=== PATIENT | male | born 1935 | race Caucasian/White ===

== ENCOUNTER 2017-07-25 16:56 | Inpatient (IN) | payer MEDICARE, BC ==
[~2017-07-25] VITALS: Ht 177.8 cm; Wt 109.9 kg
[~2017-07-25 16:56] MED LIST: APIX5TAB3 PO; GABA-532 PO; HYDR25TA4 PO; LIRA0.6P SQ; LOSA100T28 PO; MAGN400T6 PO; MEMA5TAB40 PO; SIMV20TA5 PO; SOTA80TA69 PO
[2017-07-25 17:14] LABS: BASOPHILS # (AUTO) 0.1 X10'3 (0-0.2); BASOPHILS % (AUTO) 0.5 % (0-1); EOSINOPHILS # (AUTO) 0.2 X10'3 (0-0.9); EOSINOPHILS % (AUTO) 1.7 % (0-6); HEMATOCRIT 37.2 % (42.0-52.0); HEMOGLOBIN 12.7 g/dl (14.0-17.9); LYMPHOCYTES % (AUTO) 13.9 % (21-51); MEAN CORPUSCULAR HEMOGLOBIN 32.7 PG (27.0-31.0); MEAN CORPUSCULAR HGB CONC 34.2 % (33.0-36.5); MEAN CORPUSCULAR VOLUME 95.8 FL (78-98); MONOCYTES # (AUTO) 0.3 X10'3 (0-0.9); MONOCYTES % (AUTO) 2.2 % (2-12); NEUTROPHILS # (AUTO) 11.8 X10'3 (1.8-7.7); NEUTROPHILS % (AUTO) 81.7 % (42-75); PLATELET COUNT 212 X10'3 (140-440); RED BLOOD COUNT 3.89 X10'6 (4.70-6.10); RED CELL DISTRIBUTION WIDTH 14.6 % (11.5-14.5); WHITE BLOOD COUNT 14.4 X10'3 (4.5-11.0)
[2017-07-25] MEDS ORDERED: ceFAZolin 1GM/D5W- ADD-VANTAGE 50 ML IV ONE ×2 (17:20)
[2017-07-25 17:25] LABS: INR 1.1 INR; PARTIAL THROMBOPLASTIN TIME 21 SECONDS (22-32); PROTHROMBIN TIME 10.9 SECONDS (9.0-12.0)
[2017-07-25] MEDS ORDERED: ceFAZolin inj. 2,000 MG in normal saline 100ml IV soln 100 ML IV ONE ×2 (17:25→18:00)
[2017-07-25 17:29] LABS: ALANINE AMINOTRANSFERASE 28 U/L (12-78); ALBUMIN 3.4 G/DL (3.4-5.0); ALKALINE PHOSPHATASE 61 IU/L (46-116); ANION GAP 12 (8-16); ASPARTATE AMINO TRANSFERASE 22 U/L (10-37); BILIRUBIN,TOTAL 0.9 MG/DL (0.1-1.0); BLOOD UREA NITROGEN 26 MG/DL (7-18); BUN/CREATININE RATIO 15.5 (5.4-32.0); CALCIUM 8.8 MG/DL (8.5-10.1); CHLORIDE 106 MMOL/L (99-107); CREATININE 1.68 MG/DL (0.60-1.10); GLUCOSE 205 MG/DL (70-104); POTASSIUM 4.8 MMOL/L (3.5-5.1); SODIUM 142 MMOL/L (135-145); TOTAL CARBON DIOXIDE 23.6 MMOL/L (24-32); TOTAL PROTEIN 6.7 G/DL (6.4-8.2); eGFR 39 ML/MIN
[2017-07-25] MEDS ORDERED: etomidate 2mg/ml inj. ONE (17:45)
[2017-07-25] MEDS ORDERED: sevoflurane 250ml liquid IH ONE (17:45)
[2017-07-25] MEDS ORDERED: neostigmine methylsulfate 1 MG/ML 10ml vial ONE (17:45)
[2017-07-25] MEDS: normal saline 1000ml 1,000 ML IV SCH (17:52)
[2017-07-25] MEDS ORDERED: ceFAZolin 2gm in dextrose, iso 100 ML IV ONE (17:55)
[2017-07-25] MEDS ORDERED: iohexol 350MG/ML 100ml bottle IV ONE (17:56)
[2017-07-25] MEDS ORDERED: heparin 10,000 units/1 ML INJ ONE (18:21)
[2017-07-25] MEDS ORDERED: ringers solution, lacted 1,000 ML IV ONE (18:44)
[2017-07-25] MEDS ORDERED: meperidine/PF 50mg/ml syringe IV PRN ×2 (18:45)
[2017-07-25] MEDS ORDERED: meperidine/PF 50mg/ml syringe IV ONE (18:45)
[2017-07-25] MEDS ORDERED: hydrALAZINE 20mg/ml inj. IV PRN (18:45)
[2017-07-25] MEDS ORDERED: labetalol 20mg/4ml (5mg/ml) syringe IV PRN (18:45)
[2017-07-25] MEDS ORDERED: ondansetron/PF 4mg/2ml inj IV PRN ×2 (18:45→21:25)
[2017-07-25] MEDS ORDERED: morphine 4 MG/ML inj SYRINge IV PRN ×4 (18:45→23:15)
[2017-07-25 20:06] LABS: ABG BASE EXCESS -1.5 mmol/L (-2.0-3.0); ABG HCO3 24.5 mmol/L (22.0-26.0); ABG OXYGEN SATURATION 98.1 % (95-98); ABG PCO2 (T) 45.4 mmHg (35.0-48.0); ABG PH (T) 7.346 (7.350-7.450); ABG PO2 (T) 145.4 mmHg (83-108); FCOHb 0.3 % (0.5-1.5); FMetHb 0.3 % (0.3-1.12); FO2Hb 97.5 % (94-100); PATIENT TEMPERATURE 36.2; TOTAL HEMOGLOBIN 10.6 G/dl (14.0-18.0)
[2017-07-25 21:15] VITALS: BP_SYST 100; BP_SYST 105; BP_DIAS 54; BP_DIAS 55
[2017-07-25] MEDS ORDERED: HYDROmorphone 2mg/ml vial IV PRN (21:25)
[2017-07-25] MEDS: Potassium Cl inj 20 MEQ in ringers solution, lacted 1,000 ML IV SCH (21:25)
[2017-07-25 21:30] VITALS: BP_SYST 101; BP_DIAS 57; BP_DIAS 67
[2017-07-25 21:45] VITALS: BP 117/60
[2017-07-25 22:00] VITALS: BP 100/44
[2017-07-25 22:30] VITALS: BP 112/51
[2017-07-25] MEDS ORDERED: naloxone 0.4 mg/ml inj ONE (22:55)
[2017-07-25 23:00] VITALS: BP 103/48
[2017-07-25 23:50] LABS: BASOPHILS % (AUTO) 0.3 % (0-1); EOSINOPHILS % (AUTO) 0.1 % (0-6); HEMOGLOBIN 9.9 g/dl (14.0-17.9); LYMPHOCYTES # (AUTO) 1.6 X10'3 (1.1-4.8); MEAN CORPUSCULAR HEMOGLOBIN 32.2 PG (27.0-31.0); MEAN CORPUSCULAR VOLUME 94.7 FL (78-98); MEAN PLATELET VOLUME 9.9 FL (7.4-10.4); MONOCYTES % (AUTO) 6.4 % (2-12); NEUTROPHILS # (AUTO) 12.2 X10'3 (1.8-7.7); NEUTROPHILS % (AUTO) 82.2 % (42-75); PLATELET COUNT 175 X10'3 (140-440); RED BLOOD COUNT 3.06 X10'6 (4.70-6.10); RED CELL DISTRIBUTION WIDTH 14.5 % (11.5-14.5); WHITE BLOOD COUNT 14.9 X10'3 (4.5-11.0)
[2017-07-26] VITALS (27 sets, daily range): BP systolic 74–153; BP diastolic 40–66
[2017-07-26 00:04] LABS: ALANINE AMINOTRANSFERASE 23 U/L (12-78); ALBUMIN 2.9 G/DL (3.4-5.0); ALBUMIN/GLOBULIN RATIO 1.2 (1.1-1.5); ALKALINE PHOSPHATASE 43 IU/L (46-116); ANION GAP 9 (8-16); ASPARTATE AMINO TRANSFERASE 23 U/L (10-37); BILIRUBIN,TOTAL 1.1 MG/DL (0.1-1.0); BLOOD UREA NITROGEN 24 MG/DL (7-18); BUN/CREATININE RATIO 17.3 (5.4-32.0); CALCIUM 7.9 MG/DL (8.5-10.1); CHLORIDE 110 MMOL/L (99-107); CREATININE 1.39 MG/DL (0.60-1.10); GLUCOSE 145 MG/DL (70-104); POTASSIUM 4.8 MMOL/L (3.5-5.1); SODIUM 144 MMOL/L (135-145); TOTAL CARBON DIOXIDE 25.1 MMOL/L (24-32); TOTAL PROTEIN 5.3 G/DL (6.4-8.2); eGFR 49 ML/MIN
[2017-07-26] MEDS: ceFAZolin inj. 1,000 MG in dextrose 5%-water 50ml 50 ML IV SCH ×3 (00:15→15:19)
[2017-07-26] MEDS ORDERED: albumin (Human) 5% 250ml 500 ML IV ONE (00:16)
[2017-07-26] MEDS: normal saline 1000ml 1,000 ML IV SCH ×2 (00:55→07:27)
[2017-07-26] MEDS: Potassium Cl inj 20 MEQ in ringers solution, lacted 1,000 ML IV SCH (05:30)
[2017-07-26 06:54] LABS: BASOPHILS # (AUTO) 0.1 X10'3 (0-0.2); BASOPHILS % (AUTO) 0.5 % (0-1); EOSINOPHILS # (AUTO) 0.1 X10'3 (0-0.9); EOSINOPHILS % (AUTO) 0.7 % (0-6); HEMATOCRIT 24.6 % (42.0-52.0); HEMOGLOBIN 8.4 g/dl (14.0-17.9); LYMPHOCYTES # (AUTO) 1.6 X10'3 (1.1-4.8); LYMPHOCYTES % (AUTO) 14.9 % (21-51); MEAN CORPUSCULAR HEMOGLOBIN 32.6 PG (27.0-31.0); MEAN CORPUSCULAR VOLUME 95.8 FL (78-98); MEAN PLATELET VOLUME 10.1 FL (7.4-10.4); MONOCYTES # (AUTO) 0.8 X10'3 (0-0.9); MONOCYTES % (AUTO) 6.9 % (2-12); NEUTROPHILS # (AUTO) 8.4 X10'3 (1.8-7.7); PLATELET COUNT 159 X10'3 (140-440); RED BLOOD COUNT 2.57 X10'6 (4.70-6.10); RED CELL DISTRIBUTION WIDTH 15.1 % (11.5-14.5); WHITE BLOOD COUNT 10.9 X10'3 (4.5-11.0)
[2017-07-26 07:05] LABS: ALBUMIN 3.2 G/DL (3.4-5.0); ANION GAP 11 (8-16); BLOOD UREA NITROGEN 22 MG/DL (7-18); BUN/CREATININE RATIO 16.2 (5.4-32.0); CALCIUM 7.8 MG/DL (8.5-10.1); CHLORIDE 111 MMOL/L (99-107); CREATININE 1.36 MG/DL (0.60-1.10); GLUCOSE 141 MG/DL (70-104); POTASSIUM 4.4 MMOL/L (3.5-5.1); SODIUM 146 MMOL/L (135-145); TOTAL CARBON DIOXIDE 23.8 MMOL/L (24-32); eGFR 50 ML/MIN
[2017-07-26] MEDS ORDERED: acetaminophen 325mg tablet PO PRN (08:35)
[2017-07-26] MEDS: ringers solution, lacted 1,000 ML IV SCH ×2 (08:47→21:55)
[2017-07-26] MEDS ORDERED: salt irrigation nasal spray 45 ML SPRAY NS PRN (09:55)
[2017-07-26] MEDS ORDERED: MAGN400C PO (10:46)
[2017-07-26] MEDS ORDERED: HYDR25TA4 PO (10:46)
[2017-07-26] MEDS ORDERED: SOTA80TA PO (10:47)
[2017-07-26] MEDS ORDERED: METF500T4 PO (10:53)
[2017-07-26] MEDS: HYDROcodone/acetaminophen 10/325mg tab PO PRN ×2 (11:21→16:19)
[2017-07-26 14:56] LABS: HEMOGLOBIN 7.4 g/dl (14.0-17.9); MEAN CORPUSCULAR HEMOGLOBIN 32.5 PG (27.0-31.0); MEAN CORPUSCULAR HGB CONC 34.5 % (33.0-36.5); MEAN CORPUSCULAR VOLUME 94.2 FL (78-98); PLATELET COUNT 144 X10'3 (140-440); RED BLOOD COUNT 2.26 X10'6 (4.70-6.10); RED CELL DISTRIBUTION WIDTH 15.2 % (11.5-14.5); WHITE BLOOD COUNT 10.5 X10'3 (4.5-11.0)
[2017-07-26 15:01] LABS: HEMATOCRIT 21.3 % (42.0-52.0)
[2017-07-26 20:49] LABS: HEMATOCRIT 23.7 % (42.0-52.0); HEMOGLOBIN 8.2 g/dl (14.0-17.9); MEAN CORPUSCULAR HEMOGLOBIN 32.1 PG (27.0-31.0); MEAN CORPUSCULAR HGB CONC 34.6 % (33.0-36.5); MEAN CORPUSCULAR VOLUME 92.7 FL (78-98); MEAN PLATELET VOLUME 9.7 FL (7.4-10.4); PLATELET COUNT 125 X10'3 (140-440); RED BLOOD COUNT 2.56 X10'6 (4.70-6.10); RED CELL DISTRIBUTION WIDTH 15.6 % (11.5-14.5)
[2017-07-26] MEDS ORDERED: vancomycin/NS 1 GM ADD-VANTAGE 250 ML X 1 DOSE IV ONE ×2 (21:00→22:30)
[2017-07-26] MEDS: CefTRIAXone 2gm/D5W 50ml 50 ML IV SCH (21:16)
[2017-07-27] VITALS (22 sets, daily range): BP systolic 97–163; BP diastolic 46–87
[2017-07-27] MEDS ORDERED: ceFAZolin inj. 1,000 MG in dextrose 5%-water 50ml 50 ML IV SCH ×2
[2017-07-27 05:31] LABS: BASOPHILS % (AUTO) 0.4 % (0-1); EOSINOPHILS # (AUTO) 0.1 X10'3 (0-0.9); EOSINOPHILS % (AUTO) 1.4 % (0-6); HEMOGLOBIN 8.2 g/dl (14.0-17.9); LYMPHOCYTES # (AUTO) 1.6 X10'3 (1.1-4.8); LYMPHOCYTES % (AUTO) 15.2 % (21-51); MEAN CORPUSCULAR HEMOGLOBIN 31.9 PG (27.0-31.0); MEAN CORPUSCULAR HGB CONC 34.3 % (33.0-36.5); MEAN CORPUSCULAR VOLUME 93.2 FL (78-98); MONOCYTES # (AUTO) 0.8 X10'3 (0-0.9); MONOCYTES % (AUTO) 8.1 % (2-12); NEUTROPHILS # (AUTO) 7.8 X10'3 (1.8-7.7); NEUTROPHILS % (AUTO) 74.9 % (42-75); PLATELET COUNT 123 X10'3 (140-440); RED BLOOD COUNT 2.58 X10'6 (4.70-6.10); RED CELL DISTRIBUTION WIDTH 15.4 % (11.5-14.5); WHITE BLOOD COUNT 10.4 X10'3 (4.5-11.0)
[2017-07-27 05:34] LABS: ALBUMIN 2.7 G/DL (3.4-5.0); ANION GAP 9 (8-16); BLOOD UREA NITROGEN 16 MG/DL (7-18); BUN/CREATININE RATIO 11.7 (5.4-32.0); CALCIUM 7.4 MG/DL (8.5-10.1); CHLORIDE 104 MMOL/L (99-107); CREATININE 1.37 MG/DL (0.60-1.10); GLUCOSE 150 MG/DL (70-104); POTASSIUM 3.5 MMOL/L (3.5-5.1); SODIUM 138 MMOL/L (135-145); TOTAL CARBON DIOXIDE 25.5 MMOL/L (24-32); eGFR 50 ML/MIN
[2017-07-27] MEDS ORDERED: diltiazem 5mg/ml 5ml inj. IV ONE (06:20)
[2017-07-27] MEDS ORDERED: verapamil 2.5 mg/ml inj IV ONE (06:30)
[2017-07-27] MEDS: metroNIDAZOLE-Flagyl 500mg/NS 100 ML IV SCH ×2 (07:25→19:39)
[2017-07-27] MEDS: aspirin 81mg tablet.DR PO SCH (07:25)
[2017-07-27] MEDS: CefTRIAXone 2gm/D5W 50ml 50 ML IV SCH (07:25)
[2017-07-27] MEDS ORDERED: sotalol 80mg tablet PO ONE (07:30)
[2017-07-27] MEDS ORDERED: DEXTROSE IV SCH ×2 (08:00→08:10)
[2017-07-27] MEDS ORDERED: AMIODARONE IV SCH ×2 (08:00→08:10)
[2017-07-27] MEDS ORDERED: amiodarone 150mg/dext, iso-os 100 ML IV ONE (08:00)
[2017-07-27] MEDS ORDERED: potassium chloride 10mEq CAPSULE.SA PO SCH (08:00)
[2017-07-27] MEDS: amiodarone/D5 450MG/250ML BAG 250 ML IV SCH ×2 (08:47→15:27)
[2017-07-27] MEDS ORDERED: potassium Cl 10 mEq/100mL bag IV ONE (09:05)
[2017-07-27] MEDS ORDERED: potassium 10mEq/100ml NS w/LIDOcaine (10mg/bag) IV ONE (09:25)
[2017-07-27] MEDS ORDERED: potassium chloride 10mEq ER tablet PO ONE (09:30)
[2017-07-27] MEDS ORDERED: magnesium 4gm in 100ml NS 100 ML IV ONE (10:50)
[2017-07-27] MEDS: HYDROcodone/acetaminophen 10/325mg tab PO PRN (11:35)
[2017-07-27] MEDS: lactobacillus rhamnosus 10,000 MMU CELLS/CAPSULE PO SCH (19:39)
[2017-07-28] VITALS (23 sets, daily range): BP systolic 109–164; BP diastolic 50–85
[2017-07-28] MEDS: amiodarone/D5 450MG/250ML BAG 250 ML IV SCH (03:08)
[2017-07-28 05:51] LABS: BASOPHILS % (AUTO) 0.3 % (0-1); EOSINOPHILS # (AUTO) 0.3 X10'3 (0-0.9); EOSINOPHILS % (AUTO) 2.8 % (0-6); HEMATOCRIT 22.5 % (42.0-52.0); HEMOGLOBIN 7.8 g/dl (14.0-17.9); LYMPHOCYTES # (AUTO) 1.3 X10'3 (1.1-4.8); LYMPHOCYTES % (AUTO) 12.8 % (21-51); MEAN CORPUSCULAR HEMOGLOBIN 32.3 PG (27.0-31.0); MEAN CORPUSCULAR HGB CONC 34.8 % (33.0-36.5); MEAN CORPUSCULAR VOLUME 92.7 FL (78-98); MEAN PLATELET VOLUME 9.9 FL (7.4-10.4); MONOCYTES # (AUTO) 0.7 X10'3 (0-0.9); MONOCYTES % (AUTO) 6.9 % (2-12); NEUTROPHILS # (AUTO) 7.8 X10'3 (1.8-7.7); NEUTROPHILS % (AUTO) 77.2 % (42-75); PLATELET COUNT 126 X10'3 (140-440); RED BLOOD COUNT 2.43 X10'6 (4.70-6.10); RED CELL DISTRIBUTION WIDTH 15.6 % (11.5-14.5); WHITE BLOOD COUNT 10.1 X10'3 (4.5-11.0)
[2017-07-28 06:19] LABS: ALBUMIN 2.5 G/DL (3.4-5.0); ANION GAP 8 (8-16); BLOOD UREA NITROGEN 14 MG/DL (7-18); BUN/CREATININE RATIO 11.5 (5.4-32.0); CALCIUM 7.8 MG/DL (8.5-10.1); CHLORIDE 104 MMOL/L (99-107); CREATININE 1.22 MG/DL (0.60-1.10); GLUCOSE 144 MG/DL (70-104); POTASSIUM 3.5 MMOL/L (3.5-5.1); SODIUM 138 MMOL/L (135-145); TOTAL CARBON DIOXIDE 25.6 MMOL/L (24-32); eGFR 57 ML/MIN
[2017-07-28] MEDS ORDERED: magnesium hydroxide 30ml (MOM) UD suspension PO PRN (08:40)
[2017-07-28] MEDS: metroNIDAZOLE-Flagyl 500mg/NS 100 ML IV SCH ×2 (08:55→19:52)
[2017-07-28] MEDS: potassium chloride 10mEq ER tablet PO SCH (08:56)
[2017-07-28] MEDS: aspirin 81mg tablet.DR PO SCH (08:56)
[2017-07-28] MEDS: lactobacillus rhamnosus 10,000 MMU CELLS/CAPSULE PO SCH ×2 (08:56→19:51)
[2017-07-28] MEDS: HYDROcodone/acetaminophen 10/325mg tab PO PRN (08:59)
[2017-07-28] MEDS: CefTRIAXone 2gm/D5W 50ml 50 ML IV SCH (09:04)
[2017-07-28] MEDS ORDERED: VANCOMYCIN LEVEL IV NR (10:30)
[2017-07-28] MEDS ORDERED: sotalol 80mg tablet PO SCH (11:00)
[2017-07-28] MEDS ORDERED: sotalol 80mg tablet PO ONE (11:20)
[2017-07-29] VITALS (22 sets, daily range): BP systolic 90–167; BP diastolic 48–78
[2017-07-29 06:15] LABS: BASOPHILS % (AUTO) 0.4 % (0-1); EOSINOPHILS # (AUTO) 0.3 X10'3 (0-0.9); EOSINOPHILS % (AUTO) 4.4 % (0-6); HEMOGLOBIN 8.3 g/dl (14.0-17.9); LYMPHOCYTES # (AUTO) 1.3 X10'3 (1.1-4.8); LYMPHOCYTES % (AUTO) 15.8 % (21-51); MEAN CORPUSCULAR HEMOGLOBIN 32.3 PG (27.0-31.0); MEAN CORPUSCULAR HGB CONC 34.4 % (33.0-36.5); MEAN CORPUSCULAR VOLUME 93.8 FL (78-98); MEAN PLATELET VOLUME 10.4 FL (7.4-10.4); MONOCYTES # (AUTO) 0.7 X10'3 (0-0.9); NEUTROPHILS # (AUTO) 5.6 X10'3 (1.8-7.7); NEUTROPHILS % (AUTO) 70.4 % (42-75); PLATELET COUNT 152 X10'3 (140-440); RED BLOOD COUNT 2.56 X10'6 (4.70-6.10); RED CELL DISTRIBUTION WIDTH 15.2 % (11.5-14.5)
[2017-07-29 06:45] LABS: ALBUMIN 2.3 G/DL (3.4-5.0); ANION GAP 9 (8-16); BLOOD UREA NITROGEN 15 MG/DL (7-18); BUN/CREATININE RATIO 13.3 (5.4-32.0); CALCIUM 7.7 MG/DL (8.5-10.1); CHLORIDE 106 MMOL/L (99-107); CREATININE 1.13 MG/DL (0.60-1.10); GLUCOSE 129 MG/DL (70-104); POTASSIUM 3.6 MMOL/L (3.5-5.1); SODIUM 140 MMOL/L (135-145); TOTAL CARBON DIOXIDE 25.3 MMOL/L (24-32); eGFR 62 ML/MIN
[2017-07-29] MEDS: sotalol 80mg tablet PO SCH ×2 (07:18→20:17)
[2017-07-29] MEDS: lactobacillus rhamnosus 10,000 MMU CELLS/CAPSULE PO SCH ×2 (07:18→20:15)
[2017-07-29] MEDS: potassium chloride 10mEq ER tablet PO SCH (07:18)
[2017-07-29] MEDS: aspirin 81mg tablet.DR PO SCH (07:18)
[2017-07-29] MEDS: metroNIDAZOLE-Flagyl 500mg/NS 100 ML IV SCH (07:19)
[2017-07-29] MEDS: CefTRIAXone 2gm/D5W 50ml 50 ML IV SCH (07:19)
[2017-07-29] MEDS: HYDROcodone/acetaminophen 10/325mg tab PO PRN (14:04)
[2017-07-29] MEDS: metroNIDAZOLE 500mg tablet PO SCH (20:15)
[2017-07-29] MEDS: apixaban 5mg tablet PO SCH (20:17)
[2017-07-30] VITALS (14 sets, daily range): BP systolic 108–173; BP diastolic 33–83
[2017-07-30 00:37] LABS: BASOPHILS # (AUTO) 0.1 X10'3 (0-0.2); BASOPHILS % (AUTO) 0.6 % (0-1); EOSINOPHILS # (AUTO) 0.4 X10'3 (0-0.9); EOSINOPHILS % (AUTO) 4.7 % (0-6); LYMPHOCYTES # (AUTO) 1.4 X10'3 (1.1-4.8); LYMPHOCYTES % (AUTO) 16.2 % (21-51); MEAN CORPUSCULAR HEMOGLOBIN 31.1 PG (27.0-31.0); MEAN CORPUSCULAR HGB CONC 33.2 % (33.0-36.5); MEAN CORPUSCULAR VOLUME 93.6 FL (78-98); MEAN PLATELET VOLUME 10.1 FL (7.4-10.4); MONOCYTES # (AUTO) 0.8 X10'3 (0-0.9); MONOCYTES % (AUTO) 9.5 % (2-12); NEUTROPHILS # (AUTO) 5.9 X10'3 (1.8-7.7); PLATELET COUNT 188 X10'3 (140-440); RED BLOOD COUNT 2.57 X10'6 (4.70-6.10); RED CELL DISTRIBUTION WIDTH 14.5 % (11.5-14.5); WHITE BLOOD COUNT 8.6 X10'3 (4.5-11.0)
[2017-07-30 00:39] LABS: ALBUMIN 2.3 G/DL (3.4-5.0); ANION GAP 8 (8-16); BLOOD UREA NITROGEN 18 MG/DL (7-18); BUN/CREATININE RATIO 16.4 (5.4-32.0); CALCIUM 7.8 MG/DL (8.5-10.1); CHLORIDE 104 MMOL/L (99-107); GLUCOSE 165 MG/DL (70-104); POTASSIUM 3.9 MMOL/L (3.5-5.1); SODIUM 139 MMOL/L (135-145); eGFR 64 ML/MIN
[2017-07-30] MEDS: lactobacillus rhamnosus 10,000 MMU CELLS/CAPSULE PO SCH ×2 (07:33→20:37)
[2017-07-30] MEDS: apixaban 5mg tablet PO SCH ×2 (07:33→20:37)
[2017-07-30] MEDS: sotalol 80mg tablet PO SCH ×2 (07:33→20:37)
[2017-07-30] MEDS: metroNIDAZOLE 500mg tablet PO SCH ×2 (07:33→20:00)
[2017-07-30] MEDS: CefTRIAXone 2gm/D5W 50ml 50 ML IV SCH (07:33)
[2017-07-30] MEDS: aspirin 81mg tablet.DR PO SCH (07:34)
[2017-07-30] MEDS: potassium chloride 10mEq ER tablet PO SCH (07:35)
[2017-07-30] MEDS ORDERED: magnesium citrate 296ml oral solution PO PRN (08:00)
[2017-07-31 03:00] VITALS: BP 162/57
[2017-07-31 06:00] VITALS: BP 117/61
[2017-07-31] MEDS: potassium chloride 10mEq ER tablet PO SCH (07:39)
[2017-07-31] MEDS: lactobacillus rhamnosus 10,000 MMU CELLS/CAPSULE PO SCH ×2 (07:39→19:48)
[2017-07-31] MEDS: aspirin 81mg tablet.DR PO SCH (07:39)
[2017-07-31] MEDS: apixaban 5mg tablet PO SCH ×2 (07:39→19:48)
[2017-07-31] MEDS: CefTRIAXone 2gm/D5W 50ml 50 ML IV SCH (07:40)
[2017-07-31] MEDS: sotalol 80mg tablet PO SCH ×2 (07:40→19:48)
[2017-07-31] MEDS: metroNIDAZOLE 500mg tablet PO SCH ×2 (08:00→19:48)
[2017-07-31 11:00] VITALS: BP 155/54
[2017-07-31 15:00] VITALS: BP 150/52
[2017-07-31 19:00] VITALS: BP 115/61
[2017-07-31 23:00] VITALS: BP 155/64
[2017-08-01 03:00] VITALS: BP 136/64
[2017-08-01 05:32] LABS: BASOPHILS % (AUTO) 0.3 % (0-1); EOSINOPHILS # (AUTO) 0.5 X10'3 (0-0.9); EOSINOPHILS % (AUTO) 5.7 % (0-6); HEMATOCRIT 25.2 % (42.0-52.0); HEMOGLOBIN 8.5 g/dl (14.0-17.9); LYMPHOCYTES # (AUTO) 1.6 X10'3 (1.1-4.8); MEAN CORPUSCULAR HEMOGLOBIN 31.3 PG (27.0-31.0); MEAN CORPUSCULAR HGB CONC 33.7 % (33.0-36.5); MEAN PLATELET VOLUME 9.7 FL (7.4-10.4); MONOCYTES # (AUTO) 0.7 X10'3 (0-0.9); MONOCYTES % (AUTO) 8.2 % (2-12); NEUTROPHILS # (AUTO) 5.9 X10'3 (1.8-7.7); NEUTROPHILS % (AUTO) 67.8 % (42-75); PLATELET COUNT 255 X10'3 (140-440); RED BLOOD COUNT 2.71 X10'6 (4.70-6.10); RED CELL DISTRIBUTION WIDTH 15.8 % (11.5-14.5); WHITE BLOOD COUNT 8.6 X10'3 (4.5-11.0)
[2017-08-01 05:52] LABS: ALBUMIN 2.3 G/DL (3.4-5.0); ANION GAP 8 (8-16); BLOOD UREA NITROGEN 21 MG/DL (7-18); BUN/CREATININE RATIO 17.1 (5.4-32.0); CALCIUM 8.2 MG/DL (8.5-10.1); CHLORIDE 107 MMOL/L (99-107); CREATININE 1.23 MG/DL (0.60-1.10); GLUCOSE 134 MG/DL (70-104); POTASSIUM 4.7 MMOL/L (3.5-5.1); SODIUM 143 MMOL/L (135-145); TOTAL CARBON DIOXIDE 27.7 MMOL/L (24-32); eGFR 56 ML/MIN
[2017-08-01 06:00] VITALS: BP 99/63
[2017-08-01] MEDS: sotalol 80mg tablet PO SCH ×2 (08:00→22:07)
[2017-08-01] MEDS: lactobacillus rhamnosus 10,000 MMU CELLS/CAPSULE PO SCH ×2 (08:30→22:07)
[2017-08-01] MEDS: CefTRIAXone 2gm/D5W 50ml 50 ML IV SCH (08:30)
[2017-08-01] MEDS: metroNIDAZOLE 500mg tablet PO SCH ×2 (08:30→22:07)
[2017-08-01] MEDS: apixaban 5mg tablet PO SCH ×2 (08:31→22:07)
[2017-08-01] MEDS: potassium chloride 10mEq ER tablet PO SCH (08:31)
[2017-08-01] MEDS: aspirin 81mg tablet.DR PO SCH (08:31)
[2017-08-01 11:00] VITALS: BP 126/53
[2017-08-01] MEDS: normal saline 1000ml 1,000 ML IV SCH ×2 (11:50→21:50)
[2017-08-01 15:00] VITALS: BP 141/56
[2017-08-01 19:00] VITALS: BP 112/60
[2017-08-01 23:00] VITALS: BP 114/57
[2017-08-02 03:00] VITALS: BP 132/64
[2017-08-02 05:15] LABS: BASOPHILS # (AUTO) 0.1 X10'3 (0-0.2); BASOPHILS % (AUTO) 0.9 % (0-1); EOSINOPHILS # (AUTO) 0.4 X10'3 (0-0.9); EOSINOPHILS % (AUTO) 5.3 % (0-6); HEMATOCRIT 25.9 % (42.0-52.0); HEMOGLOBIN 8.6 g/dl (14.0-17.9); LYMPHOCYTES # (AUTO) 1.6 X10'3 (1.1-4.8); LYMPHOCYTES % (AUTO) 19.2 % (21-51); MEAN CORPUSCULAR HEMOGLOBIN 31.3 PG (27.0-31.0); MEAN CORPUSCULAR HGB CONC 33.1 % (33.0-36.5); MEAN CORPUSCULAR VOLUME 94.6 FL (78-98); MEAN PLATELET VOLUME 9.9 FL (7.4-10.4); MONOCYTES # (AUTO) 0.7 X10'3 (0-0.9); MONOCYTES % (AUTO) 8.5 % (2-12); NEUTROPHILS # (AUTO) 5.6 X10'3 (1.8-7.7); NEUTROPHILS % (AUTO) 66.1 % (42-75); PLATELET COUNT 299 X10'3 (140-440); RED BLOOD COUNT 2.73 X10'6 (4.70-6.10); RED CELL DISTRIBUTION WIDTH 15.6 % (11.5-14.5); WHITE BLOOD COUNT 8.5 X10'3 (4.5-11.0)
[2017-08-02 05:36] LABS: ALBUMIN 2.3 G/DL (3.4-5.0); ANION GAP 8 (8-16); BLOOD UREA NITROGEN 18 MG/DL (7-18); CALCIUM 8.2 MG/DL (8.5-10.1); CHLORIDE 109 MMOL/L (99-107); GLUCOSE 135 MG/DL (70-104); POTASSIUM 4.9 MMOL/L (3.5-5.1); SODIUM 144 MMOL/L (135-145); eGFR 58 ML/MIN
[2017-08-02 06:00] VITALS: BP 126/72
[2017-08-02] MEDS: normal saline 1000ml 1,000 ML IV SCH ×2 (06:16→17:50)
[2017-08-02] MEDS: aspirin 81mg tablet.DR PO SCH (07:35)
[2017-08-02] MEDS: metroNIDAZOLE 500mg tablet PO SCH ×2 (07:35→20:14)
[2017-08-02] MEDS: lactobacillus rhamnosus 10,000 MMU CELLS/CAPSULE PO SCH ×2 (07:35→20:12)
[2017-08-02] MEDS: sotalol 80mg tablet PO SCH ×2 (07:35→20:13)
[2017-08-02] MEDS: apixaban 5mg tablet PO SCH ×2 (07:35→20:14)
[2017-08-02] MEDS: potassium chloride 10mEq ER tablet PO SCH (07:35)
[2017-08-02] MEDS: CefTRIAXone 2gm/D5W 50ml 50 ML IV SCH (07:36)
[2017-08-02] MEDS: gabapentin 100mg capsule PO SCH ×2 (13:01→20:14)
[2017-08-02 19:00] VITALS: BP 134/65
[2017-08-02 22:00] VITALS: BP 137/59
[2017-08-03 02:00] VITALS: BP 135/91
[2017-08-03 06:00] VITALS: BP 140/46
[2017-08-03 06:01] LABS: BASOPHILS % (AUTO) 0.6 % (0-1); EOSINOPHILS # (AUTO) 0.5 X10'3 (0-0.9); EOSINOPHILS % (AUTO) 5.9 % (0-6); HEMATOCRIT 25.4 % (42.0-52.0); HEMOGLOBIN 8.5 g/dl (14.0-17.9); LYMPHOCYTES # (AUTO) 1.5 X10'3 (1.1-4.8); LYMPHOCYTES % (AUTO) 19.3 % (21-51); MEAN CORPUSCULAR HEMOGLOBIN 31.6 PG (27.0-31.0); MEAN CORPUSCULAR HGB CONC 33.6 % (33.0-36.5); MEAN CORPUSCULAR VOLUME 94.2 FL (78-98); MEAN PLATELET VOLUME 9.6 FL (7.4-10.4); MONOCYTES # (AUTO) 0.6 X10'3 (0-0.9); MONOCYTES % (AUTO) 8.3 % (2-12); NEUTROPHILS % (AUTO) 65.9 % (42-75); PLATELET COUNT 297 X10'3 (140-440); RED CELL DISTRIBUTION WIDTH 15.4 % (11.5-14.5); WHITE BLOOD COUNT 7.6 X10'3 (4.5-11.0)
[2017-08-03 06:30] LABS: ALBUMIN 2.3 G/DL (3.4-5.0); ANION GAP 9 (8-16); BLOOD UREA NITROGEN 17 MG/DL (7-18); BUN/CREATININE RATIO 14.8 (5.4-32.0); CHLORIDE 107 MMOL/L (99-107); CREATININE 1.15 MG/DL (0.60-1.10); GLUCOSE 126 MG/DL (70-104); POTASSIUM 4.2 MMOL/L (3.5-5.1); SODIUM 141 MMOL/L (135-145); TOTAL CARBON DIOXIDE 25.5 MMOL/L (24-32); eGFR 61 ML/MIN
[2017-08-03] MEDS: apixaban 5mg tablet PO SCH ×2 (08:09→20:08)
[2017-08-03] MEDS: gabapentin 100mg capsule PO SCH ×3 (08:09→20:09)
[2017-08-03] MEDS: metroNIDAZOLE 500mg tablet PO SCH (08:09)
[2017-08-03] MEDS: aspirin 81mg tablet.DR PO SCH (08:09)
[2017-08-03] MEDS: CefTRIAXone 2gm/D5W 50ml 50 ML IV SCH (08:09)
[2017-08-03] MEDS: lactobacillus rhamnosus 10,000 MMU CELLS/CAPSULE PO SCH ×2 (08:09→20:09)
[2017-08-03] MEDS: sotalol 80mg tablet PO SCH ×2 (08:10→20:08)
[2017-08-03] MEDS: potassium chloride 10mEq ER tablet PO SCH (08:10)
[2017-08-03 11:00] VITALS: BP 133/54
[2017-08-03 15:00] VITALS: BP 116/46
[2017-08-03 19:00] VITALS: BP 129/59
[2017-08-03 23:00] VITALS: BP 145/50
[2017-08-04 04:53] VITALS: BP 142/56
[2017-08-04 05:26] LABS: BASOPHILS % (AUTO) 0.5 % (0-1); EOSINOPHILS # (AUTO) 0.4 X10'3 (0-0.9); EOSINOPHILS % (AUTO) 5.4 % (0-6); HEMOGLOBIN 8.7 g/dl (14.0-17.9); LYMPHOCYTES # (AUTO) 1.6 X10'3 (1.1-4.8); LYMPHOCYTES % (AUTO) 20.4 % (21-51); MEAN CORPUSCULAR HEMOGLOBIN 31.6 PG (27.0-31.0); MEAN CORPUSCULAR HGB CONC 33.5 % (33.0-36.5); MEAN CORPUSCULAR VOLUME 94.4 FL (78-98); MEAN PLATELET VOLUME 9.3 FL (7.4-10.4); MONOCYTES # (AUTO) 0.7 X10'3 (0-0.9); MONOCYTES % (AUTO) 9.1 % (2-12); NEUTROPHILS # (AUTO) 5.1 X10'3 (1.8-7.7); NEUTROPHILS % (AUTO) 64.6 % (42-75); PLATELET COUNT 298 X10'3 (140-440); RED BLOOD COUNT 2.75 X10'6 (4.70-6.10); RED CELL DISTRIBUTION WIDTH 15.5 % (11.5-14.5); WHITE BLOOD COUNT 7.9 X10'3 (4.5-11.0)
[2017-08-04 05:32] LABS: ALBUMIN 2.3 G/DL (3.4-5.0); ANION GAP 8 (8-16); BLOOD UREA NITROGEN 17 MG/DL (7-18); CALCIUM 8.1 MG/DL (8.5-10.1); CHLORIDE 108 MMOL/L (99-107); CREATININE 1.21 MG/DL (0.60-1.10); GLUCOSE 122 MG/DL (70-104); POTASSIUM 4.3 MMOL/L (3.5-5.1); SODIUM 142 MMOL/L (135-145); TOTAL CARBON DIOXIDE 25.6 MMOL/L (24-32); eGFR 58 ML/MIN
[2017-08-04 06:00] VITALS: BP 138/56
[2017-08-04] MEDS: sotalol 80mg tablet PO SCH ×2 (07:25→20:13)
[2017-08-04] MEDS: apixaban 5mg tablet PO SCH ×2 (07:26→20:13)
[2017-08-04] MEDS: potassium chloride 10mEq ER tablet PO SCH (07:26)
[2017-08-04] MEDS: lactobacillus rhamnosus 10,000 MMU CELLS/CAPSULE PO SCH ×2 (07:27→20:13)
[2017-08-04] MEDS: aspirin 81mg tablet.DR PO SCH (07:27)
[2017-08-04] MEDS: gabapentin 100mg capsule PO SCH ×3 (07:27→20:13)
[2017-08-04] MEDS ORDERED: VANCOMYCIN LEVEL IV NR (10:30)
[2017-08-04 11:00] VITALS: BP 133/60
[2017-08-04 15:00] VITALS: BP 129/47
[2017-08-04] MEDS: normal saline 1000ml 1,000 ML IV SCH (17:50)
[2017-08-04 19:00] VITALS: BP 147/59
[2017-08-04 23:00] VITALS: BP 117/60
[2017-08-05 03:00] VITALS: BP 146/63
[2017-08-05 05:49] LABS: ALBUMIN 2.4 G/DL (3.4-5.0); ANION GAP 9 (8-16); BLOOD UREA NITROGEN 16 MG/DL (7-18); BUN/CREATININE RATIO 13.2 (5.4-32.0); CALCIUM 8.3 MG/DL (8.5-10.1); CHLORIDE 108 MMOL/L (99-107); CREATININE 1.21 MG/DL (0.60-1.10); GLUCOSE 121 MG/DL (70-104); POTASSIUM 4.3 MMOL/L (3.5-5.1); SODIUM 143 MMOL/L (135-145); TOTAL CARBON DIOXIDE 25.9 MMOL/L (24-32); eGFR 58 ML/MIN
[2017-08-05 06:30] VITALS: BP 138/81
[2017-08-05] MEDS: potassium chloride 10mEq ER tablet PO SCH (08:00)
[2017-08-05] MEDS: gabapentin 100mg capsule PO SCH ×3 (08:30→20:30)
[2017-08-05] MEDS: aspirin 81mg tablet.DR PO SCH (08:30)
[2017-08-05] MEDS: sotalol 80mg tablet PO SCH ×2 (08:30→20:30)
[2017-08-05] MEDS: apixaban 5mg tablet PO SCH ×2 (08:30→20:30)
[2017-08-05] MEDS: lactobacillus rhamnosus 10,000 MMU CELLS/CAPSULE PO SCH ×2 (08:30→20:30)
[2017-08-05 11:00] VITALS: BP 125/54
[2017-08-05 15:00] VITALS: BP 134/57
[2017-08-05 19:00] VITALS: BP 124/47
[2017-08-05 23:00] VITALS: BP 133/57
[2017-08-06 03:00] VITALS: BP 138/50
[2017-08-06 05:49] LABS: ALBUMIN 2.5 G/DL (3.4-5.0); ANION GAP 8 (8-16); BLOOD UREA NITROGEN 16 MG/DL (7-18); CALCIUM 8.3 MG/DL (8.5-10.1); CHLORIDE 108 MMOL/L (99-107); CREATININE 1.23 MG/DL (0.60-1.10); GLUCOSE 109 MG/DL (70-104); POTASSIUM 4.5 MMOL/L (3.5-5.1); SODIUM 144 MMOL/L (135-145); TOTAL CARBON DIOXIDE 27.9 MMOL/L (24-32); eGFR 56 ML/MIN
[2017-08-06 06:00] VITALS: BP 159/53
[2017-08-06] MEDS: potassium chloride 10mEq ER tablet PO SCH (07:11)
[2017-08-06] MEDS: aspirin 81mg tablet.DR PO SCH (07:38)
[2017-08-06] MEDS: lactobacillus rhamnosus 10,000 MMU CELLS/CAPSULE PO SCH (07:38)
[2017-08-06] MEDS: apixaban 5mg tablet PO SCH (07:38)
[2017-08-06] MEDS: gabapentin 100mg capsule PO SCH ×2 (07:38→13:00)
[2017-08-06] MEDS: sotalol 80mg tablet PO SCH (07:38)
[2017-08-06 11:00] VITALS: BP 30/50
[2017-08-06] MEDS ORDERED: APIX5TAB3 PO (12:08)
== END 2017-08-06 13:07 | disposition home health service (06) | DRG 907 ==
LOC: ER 16:56 → ICU 2S 17:52 → PCU 3S 07-30 12:10
PROVIDERS: ADMIT Surgery; ATTEND Family Medicine
PROC: 06U Lower Veins, Supplement (ICD-10-PCS; 2017-07-25)
PROC: 06BQ0ZZ Excision of Left Saphenous Vein, Open Approach (ICD-10-PCS; 2017-07-25)
PROC: 04CK0ZZ Extirpation of Matter from Right Femoral Artery, Open Approach (ICD-10-PCS; 2017-07-25)
PROC: 0XQKXZZ Repair Left Hand, External Approach (ICD-10-PCS; 2017-07-25)
PROC: 0XQJXZZ Repair Right Hand, External Approach (ICD-10-PCS; 2017-07-25)
PROC: 30233N1 Transfusion of Nonautologous Red Blood Cells into Peripheral Vein, Percutaneous Approach (ICD-10-PCS; 2017-07-25)
PROC: B42F1ZZ Computerized Tomography (CT Scan) of Right Lower Extremity Arteries using Low Osmolar Contrast (ICD-10-PCS; 2017-07-25)
PROC: 04UK07Z Supplement Right Femoral Artery with Autologous Tissue Substitute, Open Approach (ICD-10-PCS; principal; 2017-07-25 17:45)
PROC: 5A09457 Assistance with Respiratory Ventilation, 24-96 Consecutive Hours, Continuous Positive Airway Pressure (ICD-10-PCS; 2017-07-26)
PROC: 5A09357 Assistance with Respiratory Ventilation, Less than 24 Consecutive Hours, Continuous Positive Airway Pressure (ICD-10-PCS; 2017-07-28)
PROC: 5A09357 Assistance with Respiratory Ventilation, Less than 24 Consecutive Hours, Continuous Positive Airway Pressure (ICD-10-PCS; 2017-07-29)
DX: S75.021A Major laceration of femoral artery, right leg, initial encounter (principal); S75.121A Major laceration of femoral vein at hip and thigh level, right leg, initial encounter; R57.1 Hypovolemic shock; N17.9 Acute kidney failure, unspecified; E11.22 Type 2 diabetes mellitus with diabetic chronic kidney disease; I13.0 Hypertensive heart and chronic kidney disease with heart failure and stage 1 through stage 4 chronic kidney disease, or unspecified chronic kidney disease; D62 Acute posthemorrhagic anemia; I95.9 Hypotension, unspecified; I50.32 Chronic diastolic (congestive) heart failure; I48.0 Paroxysmal atrial fibrillation; I47.1 Supraventricular tachycardia; I82.611 Acute embolism and thrombosis of superficial veins of right upper extremity; L03.113 Cellulitis of right upper limb; S61.419A Laceration without foreign body of unspecified hand, initial encounter; N43.3 Hydrocele, unspecified; F03.90 Unspecified dementia, unspecified severity, without behavioral disturbance, psychotic disturbance, mood disturbance, and anxiety; G47.33 Obstructive sleep apnea (adult) (pediatric); M54.9 Dorsalgia, unspecified; I80.8 Phlebitis and thrombophlebitis of other sites; M79.671 Pain in right foot; M79.89 Other specified soft tissue disorders; R20.0 Anesthesia of skin; G89.29 Other chronic pain; R68.0 Hypothermia, not associated with low environmental temperature; N18.3 Chronic kidney disease, stage 3 (moderate); S71.111A Laceration without foreign body, right thigh, initial encounter; Z79.84 Long term (current) use of oral hypoglycemic drugs; Z79.899 Other long term (current) drug therapy; W31.89XA Contact with other specified machinery, initial encounter; Y93.89 Activity, other specified; Y92.89 Other specified places as the place of occurrence of the external cause; Y99.8 Other external cause status
CPT/HCPCS: 36415; 36600; 73700; 73706; 76870; 80048; 80053; 80202; 82803; 82948; 83735; 85018; 85025; 85027; 85610; 85730; 86885; 86900; 86901; 86920; 87070; 88304; 88305; 93005; 93971; 94760; 97110; 97116; 97161; 97530; 97535; 99291; A4357; A4649; A6213; A6222; A6255; A6257; A6258; A6446; A6449; A7000; C1757; C1887; J0282; J0690; J0696; J1170; J1644; J2270; J2310; J2710; J3370; J3475; J3480; J3490; J7030; J7060; J7120; P9016; P9045; Q9967

== ENCOUNTER 2017-11-05 09:15 | Outpatient (CLI) | payer MEDICARE, BC ==
[~2017-11-05 09:15] MED LIST changes: -GABA-532 PO; -LIRA0.6P SQ; +MAGN400C PO; -MAGN400T6 PO; -MEMA5TAB40 PO; +METF500T6 PO; -SIMV20TA5 PO; +SOTA80TA PO; -SOTA80TA69 PO
[2017-11-05] MEDS ORDERED: iohexol 350MG/ML 100ml bottle IV ONE ×2 (09:47→11:06)
[2017-11-05] MEDS ORDERED: iohexol 350 MG/ML 50ML vial IV ONE (09:47)
[2017-11-05] MEDS ORDERED: MESSAGE TO NURSING PO NR (11:35)
== END 2017-11-05 23:59 | disposition home or self-care (01) ==
LOC: 64 CT 09:15
PROVIDERS: ATTEND Surgery
DX: S75.001A Unspecified injury of femoral artery, right leg, initial encounter (principal); S75.002A Unspecified injury of femoral artery, left leg, initial encounter; I70.203 Unspecified atherosclerosis of native arteries of extremities, bilateral legs; I77.4 Celiac artery compression syndrome; I70.1 Atherosclerosis of renal artery; K80.20 Calculus of gallbladder without cholecystitis without obstruction; F10.10 Alcohol abuse, uncomplicated; I10 Essential (primary) hypertension; E11.9 Type 2 diabetes mellitus without complications; X58.XXXA Exposure to other specified factors, initial encounter; Y93.89 Activity, other specified; Y92.89 Other specified places as the place of occurrence of the external cause; Y99.8 Other external cause status
CPT/HCPCS: 75635; J7030; Q9967

== ENCOUNTER 2018-10-22 21:09 | Inpatient (IN) | payer MEDICARE, BC ==
[~2018-10-22] VITALS: Ht 188 cm; Wt 108.2 kg
[~2018-10-22 21:09] MED LIST changes: +ALBU6.7H9 INH; +GABA-532 PO; +LEVO500T2 PO; -LOSA100T28 PO; +LOSA100T57 PO; -MAGN400C PO; +METF-950 PO; -METF500T6 PO; +NORepinephrine bitart. inj. IV ONE; +SIMV20TA5 PO
[2018-10-22] MEDS ORDERED: midazolam 100mg in NS 100ml 100 ML IV PRN ×2 (21:20→22:23)
[2018-10-22] MEDS ORDERED: MIDAZolam 5mg/ml 2ml vial IV ONE (21:20)
[2018-10-22] MEDS ORDERED: metroNIDAZOLE-Flagyl 500mg/NS 100 ML IV STA ×2 (21:29→21:53)
[2018-10-22] MEDS ORDERED: vancomycin/NS 1 GM ADD-VANTAGE 250 ML IV ONE ×2 (21:30→21:55)
[2018-10-22] MEDS ORDERED: piperacillin/tazo 3.375gm/50ml 50 ML IV ONE ×2 (21:30→21:55)
[2018-10-22 21:40] LABS: ABG BASE EXCESS -6.2 mmol/L (-2.0-3.0); ABG HCO3 21.1 mmol/L (22.0-26.0); ABG PCO2 (T) 49.7 mmHg (35.0-48.0); ABG PH (T) 7.247 (7.350-7.450); ABG PO2 (T) 148.9 mmHg (83-108); FCOHb 0.3 % (0.5-1.5); FMetHb 0.2 % (0.3-1.12); FO2Hb 97.5 % (94-100); MINUTE VOLUME 9 L/min; PATIENT TEMPERATURE 37.1; PEEP 5 cm H2O; RESPIRATORY RATE 18 b/min; RESPIRATORY RATE (OBSERVED) 18 b/min; TIDAL VOLUME 450 mL; TOTAL HEMOGLOBIN 11.9 G/dl (14.0-18.0)
[2018-10-22] MEDS: NORepinephrine 8mg/ 250ml NS 250 ML IV SCH (21:52)
[2018-10-22 22:04] LABS: BASOPHILS % (AUTO) 0.4 % (0-1); EOSINOPHILS # (AUTO) 0.1 X10'3 (0-0.9); EOSINOPHILS % (AUTO) 1.2 % (0-6); HEMATOCRIT 34.7 % (42.0-52.0); HEMOGLOBIN 11.7 g/dl (14.0-17.9); LYMPHOCYTES # (AUTO) 2.2 X10'3 (1.1-4.8); LYMPHOCYTES % (AUTO) 21.3 % (21-51); MEAN CORPUSCULAR HEMOGLOBIN 32.5 PG (27.0-31.0); MEAN CORPUSCULAR HGB CONC 33.7 g/dL (33.0-36.5); MEAN CORPUSCULAR VOLUME 96.3 FL (78-98); MEAN PLATELET VOLUME 10.4 FL (7.4-10.4); MONOCYTES # (AUTO) 0.5 X10'3 (0-0.9); MONOCYTES % (AUTO) 4.7 % (2-12); NEUTROPHILS # (AUTO) 7.5 X10'3 (1.8-7.7); NEUTROPHILS % (AUTO) 72.4 % (42-75); PLATELET COUNT 266 X10'3 (140-440); RED BLOOD COUNT 3.61 X10'6 (4.70-6.10); RED CELL DISTRIBUTION WIDTH 14.9 % (11.5-14.5); WHITE BLOOD COUNT 10.4 X10'3 (4.5-11.0)
[2018-10-22 22:10] LABS: PARTIAL THROMBOPLASTIN TIME 29 SECONDS (22-32)
[2018-10-22 22:12] LABS: ALANINE AMINOTRANSFERASE 37 U/L (12-78); ALBUMIN 2.8 G/DL (3.4-5.0); ALBUMIN/GLOBULIN RATIO 0.7 (1.1-1.5); ALKALINE PHOSPHATASE 76 IU/L (46-116); ANION GAP 11 (8-16); ASPARTATE AMINO TRANSFERASE 38 U/L (10-37); BILIRUBIN,TOTAL 0.5 MG/DL (0.1-1.0); BLOOD UREA NITROGEN 48 MG/DL (7-18); BUN/CREATININE RATIO 24.7 (5.4-32.0); CALCIUM 8.2 MG/DL (8.5-10.1); CHLORIDE 99 MMOL/L (99-107); CREATININE 1.94 MG/DL (0.60-1.10); GLUCOSE 228 MG/DL (70-104); MAGNESIUM 2.2 MG/DL (1.5-2.4); POTASSIUM 3.9 MMOL/L (3.5-5.1); SODIUM 135 MMOL/L (135-145); TOTAL CARBON DIOXIDE 24.8 MMOL/L (24-32); eGFR 33 ML/MIN
--- NOTE | 2018-10-22 22:22 | NUR ---
Spoke to Dr. Guerrero of rising heart rate. 500mL of saline bolus ordered.
[2018-10-22] MEDS ORDERED: potassium Cl 20 mEq SR tablet PO PRN ×2 (22:25)
[2018-10-22] MEDS: K, MAG and/or Phos replacement - Verify level? MC SCH (22:25)
[2018-10-22] MEDS ORDERED: acetaminophen 325mg tablet PO PRN (22:25)
[2018-10-22] MEDS ORDERED: potassium Cl 20mEq/100mL bag 100 ML IV PRN (22:25)
[2018-10-22] MEDS ORDERED: morphine 2 MG/ML inj. syringe IV PRN (22:25)
[2018-10-22] MEDS ORDERED: magnesium 4gm in 100ml NS 100 ML IV PRN (22:25)
[2018-10-22] MEDS ORDERED: ondansetron/PF 4mg/2ml inj IV PRN (22:25)
[2018-10-22] MEDS ORDERED: magnesium 2GM in 50ml NS 50 ML IV PRN (22:25)
[2018-10-22] MEDS ORDERED: magnesium Cl slow-release 64mg tablet PO PRN (22:25)
[2018-10-22] MEDS ORDERED: morphine 4 MG/ML inj SYRINge IV PRN (22:25)
[2018-10-22] MEDS ORDERED: magnesium hydroxide 30ml (MOM) UD suspension PO PRN (22:25)
--- NOTE | 2018-10-22 22:31 | NUR ---
Repeat CXR ordered due to decreasing oxygen saturation and possibility of pneumothorax from CPR in field. Dr. Guerrero at bedside to examine xray and does not believe there is a pneumo at this time.
[2018-10-22 22:34] LABS: BANDS% (MANUAL) 7 % (0-10); LYMPHOCYTES % (MANUAL) 24 % (21-51); METAMYLEOCYTES% (MANUAL) 1 % (0-0); MONOCYTES % (MANUAL) 5 % (2-12); NEUTROPHILS % (MANUAL) 60 % (42-75); NUCLEATED RED BLOOD CELLS 1 /100WBC (0-0); PLATELET ESTIMATE NORMAL; PROMYELOCYTES % (MANUAL) 2 % (0-0); SMUDGE CELLS 1+; TOTAL CELLS COUNTED 100
[2018-10-22 22:35] LABS: TOXIC GRANULATION 1+
[2018-10-22 22:36] LABS: ABG BASE EXCESS -5.8 mmol/L (-2.0-3.0); ABG OXYGEN SATURATION 82.4 % (95-98); ABG PCO2 (T) 40.6 mmHg (35.0-48.0); ABG PH (T) 7.312 (7.350-7.450); ABG PO2 (T) 51.6 mmHg (83-108); FCOHb 0.6 % (0.5-1.5); FMetHb 0.1 % (0.3-1.12); FO2Hb 81.8 % (94-100); MINUTE VOLUME 11 L/min; PATIENT TEMPERATURE 37.1; PEEP 5 cm H2O; RESPIRATORY RATE 22 b/min; RESPIRATORY RATE (OBSERVED) 22 b/min; TIDAL VOLUME 450 mL; TOTAL HEMOGLOBIN 12.1 G/dl (14.0-18.0)
[2018-10-22 23:02] LABS: CLARITY,URINE SLIGHTLY CLOUDY (Clear); COLOR,URINE YELLOW (Yellow); GLUCOSE, URINE NEGATIVE (Neg); KETONES,URINE NEGATIVE (Neg); LEUKOCYTE ESTERASE ,URINE NEGATIVE (Neg); NITRITES, URINE NEGATIVE (Neg); OCCULT BLOOD,URINE SMALL (Neg); PROTEIN,URINE 100 mg/dl (Neg); UROBILINOGEN,URINE 0.2 E.U/dL (0.2-1.0)
[2018-10-22 23:08] LABS: UA COLLECTION TYPE FOLEY CATH
[2018-10-22 23:09] LABS: AMORPHOUS URATES 1+; BACTERIA,URINE NONE SEEN /HPF (Neg); MUCUS STRANDS NONE SEEN /LPF (Neg); RBC,URINE 0-2 /HPF (0-2); SQUAMOUS EPITHELIAL CELL,UR NONE SEEN /LPF (FEW); TRANSITIONAL EPI CELLS,URINE FEW /HPF; WBC,URINE NONE SEEN /HPF (0-4)
[2018-10-23] VITALS (39 sets, daily range): BP systolic 85–144; BP diastolic 37–86
[2018-10-23] MEDS: amiodarone/D5 360MG/200ML BAG 200 ML IV SCH ×4 (00:17→14:54)
[2018-10-23] MEDS ORDERED: amiodarone 150mg/dext, iso-os 100 ML IV ONE ×2 (00:20→00:22)
[2018-10-23] MEDS ORDERED: amiodarone/D5 360MG/200ML BAG 200 ML IV ONE (00:22)
[2018-10-23 00:45] LABS: HEMATOCRIT 34.3 % (42.0-52.0); HEMOGLOBIN 11.6 g/dl (14.0-17.9); MEAN CORPUSCULAR HEMOGLOBIN 32.4 PG (27.0-31.0); MEAN CORPUSCULAR HGB CONC 33.7 g/dL (33.0-36.5); MEAN CORPUSCULAR VOLUME 96.2 FL (78-98); MEAN PLATELET VOLUME 10.2 FL (7.4-10.4); PLATELET COUNT 299 X10'3 (140-440); RED BLOOD COUNT 3.57 X10'6 (4.70-6.10); RED CELL DISTRIBUTION WIDTH 15.3 % (11.5-14.5); WHITE BLOOD COUNT 16.1 X10'3 (4.5-11.0)
[2018-10-23] MEDS: normal saline 1000ml 1,000 ML IV SCH ×2 (00:48→06:57)
[2018-10-23 01:00] LABS: ALANINE AMINOTRANSFERASE 30 U/L (12-78); ALBUMIN 2.2 G/DL (3.4-5.0); ALBUMIN/GLOBULIN RATIO 0.6 (1.1-1.5); ALKALINE PHOSPHATASE 67 IU/L (46-116); ANION GAP 12 (8-16); ASPARTATE AMINO TRANSFERASE 33 U/L (10-37); BILIRUBIN,TOTAL 0.8 MG/DL (0.1-1.0); BLOOD UREA NITROGEN 47 MG/DL (7-18); BUN/CREATININE RATIO 24.7 (5.4-32.0); CALCIUM 7.4 MG/DL (8.5-10.1); CHLORIDE 100 MMOL/L (99-107); GLUCOSE 378 MG/DL (70-104); POTASSIUM 3.3 MMOL/L (3.5-5.1); SODIUM 135 MMOL/L (135-145); TOTAL CARBON DIOXIDE 23.1 MMOL/L (24-32); TOTAL PROTEIN 5.8 G/DL (6.4-8.2); eGFR 34 ML/MIN
[2018-10-23] MEDS ORDERED: vancomycin/NS 1 GM ADD-VANTAGE 250 ML IV ONE (01:00)
[2018-10-23 01:05] LABS: MAGNESIUM 1.8 MG/DL (1.5-2.4); PHOSPHORUS 4.4 MG/DL (2.3-4.5)
[2018-10-23 01:14] LABS: BANDS% (MANUAL) 13 % (0-10); BASOPHILS % (MANUAL) 1 % (0-1); LYMPHOCYTES % (MANUAL) 4 % (21-51); METAMYLEOCYTES% (MANUAL) 1 % (0-0); MONOCYTES % (MANUAL) 2 % (2-12); NEUTROPHILS % (MANUAL) 79 % (42-75); PLATELET ESTIMATE NORMAL; TOTAL CELLS COUNTED 100
[2018-10-23] MEDS ORDERED: albumin (human) 25% 100 ML IV solution IV ONE (02:25)
[2018-10-23] MEDS ORDERED: DOBUTamine-DoBUTrex 500mg/D5W 250 ML IV ONE (02:26)
[2018-10-23] MEDS: DOBUTamine-DoBUTrex 500mg/D5W 250 ML IV SCH ×2 (02:44→16:49)
[2018-10-23 03:01] LABS: OXYGEN SATURATION (MIXED VEN) 59.8 % (60-80); PO2 MIXED VENOUS (TEMP COR) 33.7 mmHg (35-46)
[2018-10-23 03:06] LABS: ABG BASE EXCESS -6.2 mmol/L (-2.0-3.0); ABG HCO3 19.9 mmol/L (22.0-26.0); ABG OXYGEN SATURATION 91.7 % (95-98); ABG PCO2 (T) 41.5 mmHg (35.0-48.0); ABG PH (T) 7.299 (7.350-7.450); ALLEN'S TEST Positive; FCOHb 0.1 % (0.5-1.5); FMetHb 0.1 % (0.3-1.12); FO2Hb 91.5 % (94-100); MINUTE VOLUME 11 L/min; PEEP 7 cm H2O; RESPIRATORY RATE 22 b/min; RESPIRATORY RATE (OBSERVED) 23 b/min; TIDAL VOLUME 450 mL; TOTAL HEMOGLOBIN 13.9 G/dl (14.0-18.0)
[2018-10-23] MEDS: hydrocortisone sod succ/PF 100mg/2ml inj. IV SCH ×4 (03:15→20:43)
[2018-10-23] MEDS: vasopressin inj. 20 UNIT in normal saline 100ml IV soln 39 ML IV SCH (03:15)
[2018-10-23] MEDS: FENTANYL-0.9 % NACL/PF 100 ML IV PRN (03:51)
--- NOTE | 2018-10-23 04:28 | NUR ---
SUMMARY: PATIENT ARRIVED TO ICU ROOM 2011B FROM ED ~ 23:45. LEVOPHED 26 UG/MIN AND VERSED 4 MG/HR. PATIENT WAS RESPONSIVE MINIMALLY BUT SQUEEZED HAND B/L TO COMMAND AND MOVED B/L FEET. PATIENT NODS YES TO PAIN. 7.5 ETT 24 CM AT TEETH. FIO2 100:, AC 18, 450, +7. NO RESPIRATORY DISTRESS. SATS MAINTAIN 92-95 %. HR WAS AFIB 120-160 BPM. INITIAL MAP WAS OVER 60 MMHG HOWEVER BEGAN TO DROP. SBP WAS 79 MMHG. INCREASED LEVOPHED. COOL EXTREMITIES, WARM TORSO. NOTED TO HAVE RASH TO GROIN, AND INNER THIGHS WELL BUTTOCKS AND DOWN THIGHS. AFTER SPEAKING WITH PATIENTS DAUGHTER SHE THOUGHT PERHAPS IT WAS RELATED TO THE ADULT DIAPER PATIENT WAS WEARING WHEN THIS EVEN OCCURRED. PATIENT HAS A # 16 KUDAE URINARY CATHETER AND HAS PUT ON ROUGHLY 30 ML YELLOW SLIGHTLY CLOUDY URINE PER HOUR SINCE ARRIVING TO UNIT. OGT WAS IN PLACE. PLACEMENT CONFIRMED AND THEN CONNECTED TO LWS. SMELLS OF VOMITUS. THICK RIVAS IN CANISTER - SMALL AMOUNT. BACK INTACT. NO SKIN BREAKDOWN/ISSUES NOTED OTHER THAN THE RASH. OPTIFOAM TO COCCYX. I/O THAT WAS PLACED IN THE FIELD AT RIGHT TIBIA WAS DISCONTINUED DURING ICU ASSESSMENT. # 20 PIV TO LEFT HAND PRESENT ON ARRIVAL TO UNIT - FROM THE FIELD. CENTRAL LINE - QUAD LUMEN TO RIGHT IJ PLACED IN THE ER. GOOD BLOOD RETURN. CVP LEVELED AND ZERO'D. PER REPORT, PATIENT RECEIVED 1000 ML NS IN FIELD, 250 ML NS IN ED AND I HUNG 250 ML NS INITIALLY WHEN PRESSURES DROPPED PATIENT PRESSURE INCREASED SLIGHTLY WITH PASSIVE LEG RAISE. DELROY HARDIN NP AT BEDSIDE NEAR 00:30. ORDERED AMIODARONE BOLUS AND GTT FOR PATIENT HR. (AMIODARONE BOLUS & GTT @ 00:34). SECOND DOSE OF VANCO ABX WAS HUNG FOR A TOTAL OF 2 GRAMS PER PHARMACY. I CALLED DELROY HARDIN NP NEAR 0215 BECAUSE WE WERE MAXED OUT ON LEVOPHED AND MAP WAS REMAINING BELOW 60 MMHG. ALSO CONVEYED PATIENT IS STILL IN AFIB 1 TEENS TO 150'S. PER ORDER, ALBUMIN 200 ML OF 25 % HUNG @ 02:26, ALSO DOBUTAMINE GTT WAS HUNG AT 02:44 @ 5 UG/KG/MIN (103.5 KG ON ADMIT TO ICU). ALSO VASOPRESSIN WAS HUNG AT 03:15 AT 0.6 UNITS/MIN PER ORDER. FENTANYL GTT WAS HUNG 03:51 04:50 LEVOPHED CURRENTLY IS STILL AT 30 UG/MIN, VASOPRESSIN 0.6 UNITS/HR, AMIODARONE 1 MG/MIN, VERSED 4 MG/HR, FENTANYL GTT 25 UG/HR, DOBUTAMINE 5 UG/KG/MIN AND NS AT 75 ML/HR. CURRENT VENT SETTINGS: 50 %, 450, +7, AC 22 WITH SATS 97-99%. PATIENT VS CURRENTLY STABLE. PATIENT IS IN NO DISTRESS AND NO S/SX PAIN. FAMILY HAS BEEN IN AND UPDATED. SUPPORT GIVEN. ALL PROCEDURES EXPLAINED.
--- NOTE | 2018-10-23 06:15 | NUR ---
Problems reprioritized. Patient report given, questions answered & plan of care reviewed with ONCOMING SHIFT.
[2018-10-23] MEDS: NORepinephrine 8mg/ 250ml NS 250 ML IV SCH ×2 (06:58→13:03)
[2018-10-23] MEDS: ESOMEPRAZOLE 40 MG VIAL IV SCH (07:51)
[2018-10-23] MEDS: metroNIDAZOLE-Flagyl 750mg/NS 150 ML IV SCH ×2 (07:52→16:07)
[2018-10-23] MEDS ORDERED: piperacillin/tazo 3.375gm/50ml 50 ML IV SCH (08:00)
[2018-10-23] MEDS ORDERED: glucagon, human recombinant 1mg kit SUBCUT PRN (08:20)
[2018-10-23] MEDS ORDERED: sodium bicarbonate (8.4%) inj. 100 MEQ in dextrose 5%-water 1,000 ML IV SCH (08:20)
[2018-10-23] MEDS ORDERED: dextrose ORAL solution 15 GM/59 ML bottle PO PRN ×2 (08:20)
[2018-10-23] MEDS ORDERED: dextrose 50%-water 50ml dispensing syringe IV PRN ×2 (08:20)
[2018-10-23] MEDS: K, MAG and/or Phos replacement - Verify level? MC SCH (08:31)
[2018-10-23] MEDS ORDERED: iohexol 350MG/ML 100ml bottle IV ONE (09:01)
[2018-10-23] MEDS ORDERED: sodium bicarbonate (8.4%) 1 mEq/ml syringe ONE (09:04)
[2018-10-23] MEDS ORDERED: sodium bicarbonate (8.4%) 1 mEq/ml syringe IV ONE (09:05)
[2018-10-23] MEDS ORDERED: ALBU8.5H8 IH ×2 (10:09→10:55)
[2018-10-23] MEDS ORDERED: LEVO500T89 PO (10:56)
[2018-10-23] MEDS ORDERED: APIX5TAB3 PO (10:58)
[2018-10-23 11:01] LABS: OXYGEN SATURATION (MIXED VEN) 82.5 % (60-80); PO2 MIXED VENOUS (TEMP COR) 43.7 mmHg (35-46)
[2018-10-23 11:28] LABS: D-DIMER 2.21 MG/L FEU (0-0.50)
--- NOTE | 2018-10-23 11:42 | NUR ---
DM Consult: A1C <7 not appropriate for ed. Pt intubated s/p cardiac arrest at home. Per family pt vomited all of dinner during CPR and chunk of food was removed in ambulance; likely aspirated during code. DX septic shock, bilateral PNA and CT shows pulmonary HTN likely r/t hx sleep apnea, multiple gallstones, and R atrophic kidney per university registrar. OG in place to suction r/t aspiration w/ bloody/brown output per RN. Currently MAP 62 on high dose pressors; not appropriate for EN at this time until more stable. Will continue to monitor; EN recs below in case to start per MD. Rec: 1. IF OGTF; trickle feed using Vital High Protein at 30ml/hr to ensure EN tolerance on high dose pressors w/ MAP borderline ~60. 2. IF TF; prealbumin Q /, daily wts 3. IF TF; additional water flush per university registrar 4. weekly wts Addendum: 10/23/18 at [address] Amended: Links added.
[2018-10-23] MEDS: potassium Cl 20mEq/100mL bag 100 ML IV PRN (12:23)
[2018-10-23] MEDS ORDERED: normal saline 1000ml 1,000 ML IV ONE (12:40)
[2018-10-23] MEDS ORDERED: sod chloride 0.9% 10ml flush syringe IV ONE (14:00)
[2018-10-23] MEDS ORDERED: rocuronium 10mg/ml inj IV ONE (14:00)
[2018-10-23] MEDS ORDERED: etomidate 2mg/ml inj. ONE (14:00)
[2018-10-23] MEDS: insulin Lispro (HumaLOG) vial - multi-dose SQ SCH ×2 (14:15→21:00)
[2018-10-23] MEDS ORDERED: piperacillin/tazo 4.5gm/100ml IVPB IV SCH (16:00)
[2018-10-23] MEDS: piperacillin/tazo 3.375gm/50ml 50 ML IV SCH (16:07)
[2018-10-23 16:41] LABS: ALANINE AMINOTRANSFERASE 24 U/L (12-78); ALBUMIN 2.5 G/DL (3.4-5.0); ALBUMIN/GLOBULIN RATIO 0.8 (1.1-1.5); ALKALINE PHOSPHATASE 62 IU/L (46-116); ANION GAP 10 (8-16); ASPARTATE AMINO TRANSFERASE 28 U/L (10-37); BILIRUBIN,TOTAL 0.6 MG/DL (0.1-1.0); BLOOD UREA NITROGEN 41 MG/DL (7-18); BUN/CREATININE RATIO 22.5 (5.4-32.0); CALCIUM 7.6 MG/DL (8.5-10.1); CHLORIDE 107 MMOL/L (99-107); CREATININE 1.82 MG/DL (0.60-1.10); POTASSIUM 4.2 MMOL/L (3.5-5.1); SODIUM 141 MMOL/L (135-145); TOTAL CARBON DIOXIDE 23.8 MMOL/L (24-32); TOTAL PROTEIN 5.8 G/DL (6.4-8.2); eGFR 36 ML/MIN
[2018-10-23 16:48] LABS: GLUCOSE 240 MG/DL (70-104)
--- NOTE | 2018-10-23 18:05 | NUR ---
Problems reprioritized. Patient report given, questions answered & plan of care reviewed with oncoming shift.
[2018-10-23] MEDS: insulin glargine (Lantus) pen - multi-dose SQ SCH (21:01)
[2018-10-24] VITALS (24 sets, daily range): BP systolic 102–156; BP diastolic 41–65
[2018-10-24] MEDS: piperacillin/tazo 3.375gm/50ml 50 ML IV SCH ×4 (00:15→23:52)
[2018-10-24] MEDS: metroNIDAZOLE-Flagyl 750mg/NS 150 ML IV SCH ×2 (00:15→07:47)
[2018-10-24] MEDS: normal saline 1000ml 1,000 ML IV SCH ×3 (01:03→21:04)
[2018-10-24] MEDS: amiodarone/D5 360MG/200ML BAG 200 ML IV SCH (02:43)
[2018-10-24] MEDS: hydrocortisone sod succ/PF 100mg/2ml inj. IV SCH ×3 (02:44→21:04)
[2018-10-24] MEDS: mineral oil/petrolatum ophthal oint EACHEYE SCH ×4 (02:44→21:05)
[2018-10-24] MEDS: insulin Lispro (HumaLOG) vial - multi-dose SQ SCH ×2 (02:47→08:03)
[2018-10-24 02:55] LABS: BASOPHILS # (AUTO) 0.1 X10'3 (0-0.2); BASOPHILS % (AUTO) 0.2 % (0-1); EOSINOPHILS % (AUTO) 0 % (0-6); HEMATOCRIT 30.2 % (42.0-52.0); HEMOGLOBIN 10.2 g/dl (14.0-17.9); LYMPHOCYTES # (AUTO) 0.9 X10'3 (1.1-4.8); LYMPHOCYTES % (AUTO) 3.2 % (21-51); MEAN CORPUSCULAR HGB CONC 33.8 g/dL (33.0-36.5); MEAN CORPUSCULAR VOLUME 94.7 FL (78-98); MEAN PLATELET VOLUME 9.8 FL (7.4-10.4); MONOCYTES # (AUTO) 0.8 X10'3 (0-0.9); MONOCYTES % (AUTO) 3.1 % (2-12); NEUTROPHILS # (AUTO) 25.4 X10'3 (1.8-7.7); NEUTROPHILS % (AUTO) 93.5 % (42-75); PLATELET COUNT 241 X10'3 (140-440); RED BLOOD COUNT 3.19 X10'6 (4.70-6.10); RED CELL DISTRIBUTION WIDTH 14.8 % (11.5-14.5)
[2018-10-24 02:57] LABS: WHITE BLOOD COUNT 27.1 X10'3 (4.5-11.0)
[2018-10-24] MEDS: FENTANYL-0.9 % NACL/PF 100 ML IV PRN (03:15)
[2018-10-24 03:21] LABS: ABG BASE EXCESS -2.7 mmol/L (-2.0-3.0); ABG HCO3 20.1 mmol/L (22.0-26.0); ABG OXYGEN SATURATION 94.3 % (95-98); ABG PCO2 (T) 28.2 mmHg (35.0-48.0); ABG PH (T) 7.469 (7.350-7.450); ABG PO2 (T) 69.6 mmHg (83-108); FCOHb 0.3 % (0.5-1.5); FMetHb 0.3 % (0.3-1.12); FO2Hb 93.7 % (94-100); MINUTE VOLUME 10 L/min; PATIENT TEMPERATURE 36.6; PEEP 7 cm H2O; RESPIRATORY RATE 22 b/min; RESPIRATORY RATE (OBSERVED) 22 b/min; TIDAL VOLUME 450 mL; TOTAL HEMOGLOBIN 10.9 G/dl (14.0-18.0)
[2018-10-24 03:21] LABS: TOTAL CELLS COUNTED 100
[2018-10-24 03:22] LABS: PLATELET ESTIMATE NORMAL; TOXIC GRANULATION 3+; TOXIC VACUOLATION 1+
[2018-10-24 04:07] LABS: ALANINE AMINOTRANSFERASE 23 U/L (12-78); ALBUMIN 2.3 G/DL (3.4-5.0); ALBUMIN/GLOBULIN RATIO 0.7 (1.1-1.5); ALKALINE PHOSPHATASE 57 IU/L (46-116); ANION GAP 11 (8-16); ASPARTATE AMINO TRANSFERASE 14 U/L (10-37); BILIRUBIN,TOTAL 0.5 MG/DL (0.1-1.0); BLOOD UREA NITROGEN 39 MG/DL (7-18); BUN/CREATININE RATIO 22.7 (5.4-32.0); CALCIUM 7.6 MG/DL (8.5-10.1); CHLORIDE 107 MMOL/L (99-107); CREATININE 1.72 MG/DL (0.60-1.10); GLUCOSE 209 MG/DL (70-104); PHOSPHORUS 2.8 MG/DL (2.3-4.5); POTASSIUM 3.2 MMOL/L (3.5-5.1); SODIUM 142 MMOL/L (135-145); TOTAL CARBON DIOXIDE 24.1 MMOL/L (24-32); TOTAL PROTEIN 5.6 G/DL (6.4-8.2); eGFR 38 ML/MIN
[2018-10-24] MEDS: potassium Cl 20mEq/100mL bag 100 ML IV PRN ×2 (04:35→05:46)
[2018-10-24] MEDS: NORepinephrine 8mg/ 250ml NS 250 ML IV SCH (05:49)
--- NOTE | 2018-10-24 06:23 | NUR ---
Problems reprioritized. Patient report given, questions answered & plan of care reviewed with Alex BOSS, patient more awake , follow commands , on low dose of fentanyl ,off amiodarone per PA r/t heart rate to bradycardia .
[2018-10-24] MEDS: ESOMEPRAZOLE 40 MG VIAL IV SCH (07:50)
[2018-10-24] MEDS ORDERED: sotalol 80mg tablet PO SCH (08:00)
[2018-10-24] MEDS: K, MAG and/or Phos replacement - Verify level? MC SCH (08:00)
[2018-10-24] MEDS ORDERED: LIDOcaine 2% 10ml TOPICAL JELLY (Urojet) MM ONE (10:55)
[2018-10-24] MEDS ORDERED: albuterol 2.5 MG/3 ML nebule NEB PRN (11:20)
--- NOTE | 2018-10-24 11:30 | NUR ---
This AM, patient did not have any urine output and upon further investigation, unable to flush the coudet catheter; bladder scan showed 78ml. Dr. Gerardo notified during rounds with orders to replace the coudet cath with uro-jet. However, upon further investigation, 250ml of urine out. Dr. Gerardo notified with orders to monitor and replace catheter as needed.
--- NOTE | 2018-10-24 11:32 | NUR ---
PRESSURE ULCER EDUCATION: DEFINITION: A pressure ulcer is an area of skin that breaks down when you stay in one position too long. The constant pressure against the skin reduces the blood flow to that area and the affected tissue dies. CAUSES: "Being bedridden or in a wheelchair "Fragile skin "Having a chronic condition, such as diabetes or vascular disease "Inability to move certain parts of your body without assistance "Older age "Incontinence of urine or stool SYMPTOMS: "A reddened area that DOES NOT turn white when pressed on - this can be the beginning of a pressure ulcer "A blister, deep sore or a crater - these can be advanced pressure ulcers FIRST AID: "Relieve the pressure on this area "Keep the area clean and dry "Call your primary doctor if you see any of the above symptoms "DO NOT massage the area "DO NOT use a donut shaped or ring shaped pillow- these actually interfere with the blood flow and cause complications PREVENTION: "Check for pressure ulcers everyday "Change position at least every two hours to relieve pressure "Use items that help relieve pressure- pillows, sheepskin, foam padding, and powders. "Keep skin clean and dry "Eat healthy well balanced meals "Exercise daily IF YOU SEE ANY OF THESE SYMPTOMS WHILE IN THE HOSPITAL - TELL YOUR NURSE IMMEDIATELY. IF YOU SEE ANY OF THESE SYMPTOMS WHILE AT HOME OR HAVE ANY QUESTIONS OR CONCERNS ABOUT PRESSURE ULCERS - CALL YOUR PRIMARY DOCTOR IMMEDIATELY. Addendum: 10/24/18 at 1147 by Daniella Rios RN Amended: Links added.
--- NOTE | 2018-10-24 11:34 | NUR ---
TF consult: Pt OGTF to start today per MD. Pt now off pressors per RN w/ MAP 65-70. Relistor to start since receiving opioids per MD. Receiving electrolyte replacement per protocol. LB 10/23. TF recs below; will monitor for EN tolerance. Rec: 1. OGTF per MD using Vital High Protein at 95ml/hr goal; to provide 2280ml fluid, 2280kcals, 1915ml free water, and 200g protein. Initiate at 20ml/hr and advance 20ml Q8 to goal as tolerated. 2. prealbumin Q /, daily wts 3. water flush 100ml Q4; adjust per exhaust and muffler fitter recs 4. weekly wts Addendum: 10/24/18 at [address] Amended: Links added.
[2018-10-24] MEDS: vasopressin inj. 20 UNIT in normal saline 100ml IV soln 39 ML IV SCH (11:45)
[2018-10-24] MEDS ORDERED: fentaNYL/PF 50MCG/1 ML 2ML syringe IV PRN ×2 (12:15→15:15)
--- NOTE | 2018-10-24 12:24 | NUR ---
Wound consult: Norberto Barney 11; skin intact as per prior note. Addendum: 10/24/18 at [address] Amended: Links added.
[2018-10-24] MEDS: methylnaltrexone br 12mg/0.6ml inj***SubQ only SQ SCH (13:00)
[2018-10-24] MEDS: levoFLOXACIN 500mg tablet PO SCH (13:01)
[2018-10-24] MEDS: enoxaparin 40mg/0.4ml syringe SUBCUT SCH (13:01)
[2018-10-24] MEDS: gabapentin 300mg capsule PO SCH ×2 (13:01→21:04)
[2018-10-24 13:46] LABS: PREALBUMIN 10.5 MG/DL (19-36)
[2018-10-24] MEDS: insulin regular, human vial - multi-dose SQ SCH ×2 (15:30→21:30)
[2018-10-24] MEDS ORDERED: LIDOcaine 2% 10ml TOPICAL JELLY (Urojet) MM PRN (16:10)
--- NOTE | 2018-10-24 18:20 | NUR ---
Problems reprioritized. Patient report given, questions answered & plan of care reviewed with Marla BOSS.
[2018-10-24] MEDS: amiodarone 200mg tablet PO SCH (21:05)
[2018-10-24] MEDS: insulin glargine (Lantus) pen - multi-dose SQ SCH (21:33)
[2018-10-25] VITALS (24 sets, daily range): BP systolic 124–158; BP diastolic 36–76
--- NOTE | 2018-10-25 01:19 | NUR ---
1830..Patient in room CICU 2010. I have received report from day RN and had the opportunity to ask questions and assume patient care.
--- NOTE | 2018-10-25 01:20 | NUR ---
2000..Assessment as noted, resting quietly.
--- NOTE | 2018-10-25 01:20 | NUR ---
0..Family visiting at bedside.
--- NOTE | 2018-10-25 01:21 | NUR ---
2300..Incontinent of large bm, bath and linen change given, medicated with fentanyl 25mcg with good effect, for complaints of pain.
--- NOTE | 2018-10-25 01:22 | NUR ---
0000..Resting quietly, appears comfortable, no changes noted.
[2018-10-25] MEDS: mineral oil/petrolatum ophthal oint EACHEYE SCH ×2 (02:34→07:48)
[2018-10-25] MEDS: insulin regular, human vial - multi-dose SQ SCH (02:35)
[2018-10-25 03:07] LABS: BASOPHILS % (AUTO) 0.2 % (0-1); EOSINOPHILS % (AUTO) 0.3 % (0-6); HEMATOCRIT 28.9 % (42.0-52.0); HEMOGLOBIN 9.8 g/dl (14.0-17.9); LYMPHOCYTES # (AUTO) 0.7 X10'3 (1.1-4.8); LYMPHOCYTES % (AUTO) 4.5 % (21-51); MEAN CORPUSCULAR HEMOGLOBIN 32.3 PG (27.0-31.0); MEAN CORPUSCULAR HGB CONC 33.8 g/dL (33.0-36.5); MEAN CORPUSCULAR VOLUME 95.7 FL (78-98); MONOCYTES # (AUTO) 0.5 X10'3 (0-0.9); MONOCYTES % (AUTO) 3.2 % (2-12); NEUTROPHILS # (AUTO) 14.3 X10'3 (1.8-7.7); NEUTROPHILS % (AUTO) 91.8 % (42-75); PLATELET COUNT 224 X10'3 (140-440); RED BLOOD COUNT 3.02 X10'6 (4.70-6.10); RED CELL DISTRIBUTION WIDTH 14.9 % (11.5-14.5); WHITE BLOOD COUNT 15.5 X10'3 (4.5-11.0)
[2018-10-25 03:20] LABS: ABG BASE EXCESS 0.2 mmol/L (-2.0-3.0); ABG HCO3 23.5 mmol/L (22.0-26.0); ABG OXYGEN SATURATION 95.7 % (95-98); ABG PCO2 (T) 32.6 mmHg (35.0-48.0); ABG PH (T) 7.473 (7.350-7.450); ABG PO2 (T) 79.3 mmHg (83-108); ALLEN'S TEST Positive; FCOHb 0.3 % (0.5-1.5); FMetHb 0.1 % (0.3-1.12); FO2Hb 95.3 % (94-100); MINUTE VOLUME 10 L/min; PATIENT TEMPERATURE 36.6; PEEP 5 cm H2O; RESPIRATORY RATE 20 b/min; RESPIRATORY RATE (OBSERVED) 20 b/min; TIDAL VOLUME 450 mL; TOTAL HEMOGLOBIN 11.4 G/dl (14.0-18.0)
[2018-10-25 03:58] LABS: ALANINE AMINOTRANSFERASE 21 U/L (12-78); ALBUMIN 2.3 G/DL (3.4-5.0); ALBUMIN/GLOBULIN RATIO 0.7 (1.1-1.5); ALKALINE PHOSPHATASE 49 IU/L (46-116); ANION GAP 11 (8-16); ASPARTATE AMINO TRANSFERASE 12 U/L (10-37); BILIRUBIN,TOTAL 0.4 MG/DL (0.1-1.0); BLOOD UREA NITROGEN 45 MG/DL (7-18); BUN/CREATININE RATIO 27.8 (5.4-32.0); CALCIUM 8.2 MG/DL (8.5-10.1); CHLORIDE 112 MMOL/L (99-107); CREATININE 1.62 MG/DL (0.60-1.10); GLUCOSE 185 MG/DL (70-104); MAGNESIUM 2.2 MG/DL (1.5-2.4); PHOSPHORUS 2.6 MG/DL (2.3-4.5); POTASSIUM 3.2 MMOL/L (3.5-5.1); SODIUM 147 MMOL/L (135-145); TOTAL CARBON DIOXIDE 24.3 MMOL/L (24-32); TOTAL PROTEIN 5.7 G/DL (6.4-8.2); eGFR 41 ML/MIN
--- NOTE | 2018-10-25 04:06 | NUR ---
0400..Noted to be in Afib, has hx of this, no other changes noted.
[2018-10-25 04:22] LABS: NUCLEATED RED BLOOD CELLS 1 /100WBC (0-0); PLATELET ESTIMATE NORMAL; TOTAL CELLS COUNTED 100; TOXIC GRANULATION 3+; TOXIC VACUOLATION 1+
[2018-10-25] MEDS: potassium Cl 20mEq/100mL bag 100 ML IV PRN ×4 (04:31→16:45)
--- NOTE | 2018-10-25 06:13 | NUR ---
0610..Problems reprioritized. Patient report given, questions answered & plan of care reviewed with oncoming RN.
--- NOTE | 2018-10-25 07:45 | NUR ---
Dr. Gerardo at bedside; converted back to sinus rhythm; confirmed with MD the order to give Sotalol and Amiodarone and that HR in the 70s; orders to administer both.
[2018-10-25] MEDS: piperacillin/tazo 3.375gm/50ml 50 ML IV SCH ×3 (07:47→23:53)
[2018-10-25] MEDS: amiodarone 200mg tablet PO SCH (07:47)
[2018-10-25] MEDS: gabapentin 300mg capsule PO SCH ×3 (07:47→20:21)
[2018-10-25] MEDS: atorvastatin 10mg tablet PO SCH (07:47)
[2018-10-25] MEDS: ESOMEPRAZOLE 40 MG VIAL IV SCH (07:47)
[2018-10-25] MEDS: sotalol 80mg tablet PO SCH ×2 (07:47→20:22)
[2018-10-25] MEDS: enoxaparin 40mg/0.4ml syringe SUBCUT SCH (07:48)
[2018-10-25] MEDS: hydrocortisone sod succ/PF 100mg/2ml inj. IV SCH (08:00)
[2018-10-25] MEDS: K, MAG and/or Phos replacement - Verify level? MC SCH (08:00)
--- NOTE | 2018-10-25 08:15 | NUR ---
Daughter came in with patient's briefs/depends for the patient to wear after the beasley catheter removed. Patient and family educated on the importance of avoiding briefs and the risk for skin breakdown; however, both patient and daughter insistent on wearing briefs. Dr. Gerardo at bedside and okayed the use of the briefs. Will apply barrier cream and monitor for incontinence in order to keep patient dry.
--- NOTE | 2018-10-25 08:30 | NUR ---
D/C of solu-cortef and tube feeding; per raquel Hallman to restart Hyperglycemic protocol and restart Metformin.
[2018-10-25] MEDS: levoFLOXACIN 500mg tablet PO SCH (12:14)
[2018-10-25] MEDS: tamsulosin 0.4mg capsule PO SCH ×2 (12:14→20:21)
[2018-10-25] MEDS ORDERED: insulin Lispro (HumaLOG) vial - multi-dose SQ SCH (17:05)
--- NOTE | 2018-10-25 18:21 | NUR ---
Problems reprioritized. Patient report given, questions answered & plan of care reviewed with Marla BOSS.
[2018-10-25] MEDS ORDERED: enoxaparin 40mg/0.4ml syringe SUBCUT SCH (20:00)
[2018-10-25] MEDS: insulin glargine (Lantus) pen - multi-dose SQ SCH (20:35)
[2018-10-25] MEDS ORDERED: VANCOMYCIN LEVEL IV NR (21:30)
[2018-10-26] VITALS (25 sets, daily range): BP systolic 137–164; BP diastolic 57–74
[2018-10-26 01:47] LABS: BASOPHILS # (AUTO) 0.2 X10'3 (0-0.2); BASOPHILS % (AUTO) 1.4 % (0-1); EOSINOPHILS # (AUTO) 0.4 X10'3 (0-0.9); EOSINOPHILS % (AUTO) 3.4 % (0-6); HEMOGLOBIN 10.5 g/dl (14.0-17.9); LYMPHOCYTES # (AUTO) 1.3 X10'3 (1.1-4.8); LYMPHOCYTES % (AUTO) 10.6 % (21-51); MEAN CORPUSCULAR HEMOGLOBIN 32.8 PG (27.0-31.0); MEAN CORPUSCULAR VOLUME 96.3 FL (78-98); MEAN PLATELET VOLUME 9.4 FL (7.4-10.4); MONOCYTES # (AUTO) 0.7 X10'3 (0-0.9); MONOCYTES % (AUTO) 5.9 % (2-12); NEUTROPHILS # (AUTO) 9.5 X10'3 (1.8-7.7); NEUTROPHILS % (AUTO) 78.7 % (42-75); PLATELET COUNT 235 X10'3 (140-440); RED BLOOD COUNT 3.21 X10'6 (4.70-6.10); RED CELL DISTRIBUTION WIDTH 15.4 % (11.5-14.5); WHITE BLOOD COUNT 12.1 X10'3 (4.5-11.0)
[2018-10-26 02:02] LABS: ALANINE AMINOTRANSFERASE 21 U/L (12-78); ALBUMIN 2.2 G/DL (3.4-5.0); ALBUMIN/GLOBULIN RATIO 0.7 (1.1-1.5); ALKALINE PHOSPHATASE 49 IU/L (46-116); ANION GAP 11 (8-16); ASPARTATE AMINO TRANSFERASE 17 U/L (10-37); BILIRUBIN,TOTAL 0.3 MG/DL (0.1-1.0); BLOOD UREA NITROGEN 37 MG/DL (7-18); BUN/CREATININE RATIO 27.2 (5.4-32.0); CALCIUM 8.2 MG/DL (8.5-10.1); CHLORIDE 114 MMOL/L (99-107); CREATININE 1.36 MG/DL (0.60-1.10); GLUCOSE 192 MG/DL (70-104); PHOSPHORUS 2.7 MG/DL (2.3-4.5); POTASSIUM 3.9 MMOL/L (3.5-5.1); SODIUM 149 MMOL/L (135-145); TOTAL CARBON DIOXIDE 24.3 MMOL/L (24-32); TOTAL PROTEIN 5.5 G/DL (6.4-8.2); eGFR 50 ML/MIN
--- NOTE | 2018-10-26 02:13 | NUR ---
1830..Patient in room CICU 2010. I have received report from day RN and had the opportunity to ask questions and assume patient care.
--- NOTE | 2018-10-26 02:14 | NUR ---
2000..Assessment as noted, resting quietly, denies any complaints.
--- NOTE | 2018-10-26 02:15 | NUR ---
2100..Incontinent large amount stool and urine, complete bath and linen change.
--- NOTE | 2018-10-26 02:16 | NUR ---
2300..Again incontinent of large amount stool and urine, bath and linen change given.
--- NOTE | 2018-10-26 02:17 | NUR ---
0200..Incontinent large amount stool and urine, bath and linen change complete. Bladder scan shows less than 50 cc urine in bladder.
--- NOTE | 2018-10-26 05:17 | NUR ---
0400..resting quietly, no changes noted.
--- NOTE | 2018-10-26 05:39 | NUR ---
0530..Incontinent of large amount urine and miderated stool, bath and linen change given, calazime cream applied to reddened scrotum and buttocks.
--- NOTE | 2018-10-26 06:25 | NUR ---
0625..Problems reprioritized. Patient report given, questions answered & plan of care reviewed with oncoming shift..
[2018-10-26] MEDS: methylnaltrexone br 12mg/0.6ml inj***SubQ only SQ SCH (08:00)
[2018-10-26] MEDS: K, MAG and/or Phos replacement - Verify level? MC SCH (08:00)
[2018-10-26] MEDS: tamsulosin 0.4mg capsule PO SCH ×2 (08:33→20:15)
[2018-10-26] MEDS: ESOMEPRAZOLE 40 MG VIAL IV SCH (08:33)
[2018-10-26] MEDS: piperacillin/tazo 3.375gm/50ml 50 ML IV SCH ×3 (08:33→23:38)
[2018-10-26] MEDS: gabapentin 300mg capsule PO SCH ×3 (08:33→21:37)
[2018-10-26] MEDS: apixaban 5mg tablet PO SCH ×2 (08:33→20:15)
[2018-10-26] MEDS: atorvastatin 10mg tablet PO SCH (08:33)
[2018-10-26] MEDS: metFORMIN 500mg tablet PO SCH (09:16)
[2018-10-26] MEDS: sotalol 80mg tablet PO SCH ×3 (09:20→22:05)
[2018-10-26] MEDS: levoFLOXACIN 500mg tablet PO SCH (12:46)
[2018-10-26] MEDS: vancomycin/NS 1 GM ADD-VANTAGE 250 ML IV SCH (14:09)
--- NOTE | 2018-10-26 16:30 | NUR ---
Patient desaturated into the low 80s during bed change and required 1L nasal cannula to maintain o2 sat of 94 or greater; pt encouraged to deep breath/cough and use IS and FV
--- NOTE | 2018-10-26 18:26 | NUR ---
Patient in room CICU 2010. I have received report from Alex BOSS and had the opportunity to ask questions and assume patient care. Pt received awake alert & oriented eating dinner. On oxygen at 1L NC with saturation 94%Right IJ quad lumen central line is transduced/ zeroed via distal port. Conde port with primary IVF/ antibiotic infusing. Rhythm is sinus HR 65 with a noted PVC. No distress upon shift change.
--- NOTE | 2018-10-26 18:34 | NUR ---
Problems reprioritized. Patient report given, questions answered & plan of care reviewed with Keyona BOSS.
--- NOTE | 2018-10-26 19:50 | NUR ---
Pts pain & BP addressed with Francisca Byrd BP now 150/57 however when pt C/O pain to left shoulder due to CPR prior to hospital admission he is refusing pain meds and BP can reach 170/systolic. Pt recently restarted back on his routine home med [facility].
[2018-10-26] MEDS: lactobacillus rhamnosus 10,000 MMU CELLS/CAPSULE PO SCH (20:15)
[2018-10-26] MEDS: insulin glargine (Lantus) pen - multi-dose SQ SCH (21:00)
--- NOTE | 2018-10-26 21:00 | NUR ---
Pt assisted up to BSC. Moved bowels, large amount of liquid brown stool. Pt tolerated activity fair.
[2018-10-27] VITALS (24 sets, daily range): BP systolic 126–167; BP diastolic 50–115
[2018-10-27] MEDS: acetaminophen 325mg tablet PO PRN ×2 (00:21→22:06)
--- NOTE | 2018-10-27 00:25 | NUR ---
Pt placed on home BIPAP.
[2018-10-27] MEDS: vancomycin/NS 1 GM ADD-VANTAGE 250 ML IV SCH (02:02)
--- NOTE | 2018-10-27 03:00 | NUR ---
Bladder scan post void is 50 ml.
--- NOTE | 2018-10-27 03:43 | NUR ---
Pharmacist called regarding Vancomycin PB. IV site found leaking and linen wet requiring complete change thus questionable amount infused. No new orders at this time. Will keep Vancomycin on schedule and draw Vanco level as ordered for 10/28/18 @ 0130. Dressing to right IJ quad lumen dressing changed. No further leaking noted.
[2018-10-27 03:54] LABS: BASOPHILS # (AUTO) 0.1 X10'3 (0-0.2); BASOPHILS % (AUTO) 0.5 % (0-1); EOSINOPHILS # (AUTO) 0.4 X10'3 (0-0.9); EOSINOPHILS % (AUTO) 3.2 % (0-6); HEMATOCRIT 31.3 % (42.0-52.0); HEMOGLOBIN 10.6 g/dl (14.0-17.9); LYMPHOCYTES # (AUTO) 1.3 X10'3 (1.1-4.8); LYMPHOCYTES % (AUTO) 9.9 % (21-51); MEAN CORPUSCULAR HEMOGLOBIN 32.4 PG (27.0-31.0); MEAN CORPUSCULAR HGB CONC 33.8 g/dL (33.0-36.5); MEAN CORPUSCULAR VOLUME 95.9 FL (78-98); MEAN PLATELET VOLUME 9.5 FL (7.4-10.4); MONOCYTES # (AUTO) 0.7 X10'3 (0-0.9); MONOCYTES % (AUTO) 5.6 % (2-12); NEUTROPHILS # (AUTO) 10.6 X10'3 (1.8-7.7); NEUTROPHILS % (AUTO) 80.8 % (42-75); PLATELET COUNT 219 X10'3 (140-440); RED BLOOD COUNT 3.26 X10'6 (4.70-6.10); RED CELL DISTRIBUTION WIDTH 15.2 % (11.5-14.5); WHITE BLOOD COUNT 13.1 X10'3 (4.5-11.0)
[2018-10-27 04:04] LABS: MAGNESIUM 1.7 MG/DL (1.5-2.4); PHOSPHORUS 4.5 MG/DL (2.3-4.5)
[2018-10-27 06:10] LABS: ALANINE AMINOTRANSFERASE 20 U/L (12-78); ALBUMIN 2.2 G/DL (3.4-5.0); ALBUMIN/GLOBULIN RATIO 0.6 (1.1-1.5); ALKALINE PHOSPHATASE 44 IU/L (46-116); ANION GAP 9 (8-16); ASPARTATE AMINO TRANSFERASE 18 U/L (10-37); BILIRUBIN,TOTAL 0.5 MG/DL (0.1-1.0); BLOOD UREA NITROGEN 29 MG/DL (7-18); BUN/CREATININE RATIO 22.8 (5.4-32.0); CHLORIDE 113 MMOL/L (99-107); CREATININE 1.27 MG/DL (0.60-1.10); GLUCOSE 138 MG/DL (70-104); POTASSIUM 3.8 MMOL/L (3.5-5.1); SODIUM 147 MMOL/L (135-145); TOTAL CARBON DIOXIDE 25.1 MMOL/L (24-32); TOTAL PROTEIN 5.6 G/DL (6.4-8.2); eGFR 54 ML/MIN
--- NOTE | 2018-10-27 06:20 | NUR ---
Problems reprioritized. Patient report given, questions answered & plan of care reviewed with Mei BOSS.
--- NOTE | 2018-10-27 06:35 | NUR ---
Patient in room CICU 2010. I have received report from Keyona BOSS and had the opportunity to ask questions and assume patient care. patient laying in bed with eyes closed, wearing home CPAP, sating 95% per orders keep o2 above92%, vital signs stable no signs of distress will continue to monitor
--- NOTE | 2018-10-27 07:00 | NUR ---
Talked to JACI Hobson, patient asking if he can be advanced to regular water and non pureed diet. Joce stated to try him with small sips of water and she how he does, patient tolerated water well no coughing or signs of aspiration. Per Joce we can advance him to a non pureed carb controlled diet
[2018-10-27] MEDS: atorvastatin 10mg tablet PO SCH (07:37)
[2018-10-27] MEDS: tamsulosin 0.4mg capsule PO SCH ×2 (07:37→19:54)
[2018-10-27] MEDS: lactobacillus rhamnosus 10,000 MMU CELLS/CAPSULE PO SCH ×2 (07:37→19:54)
[2018-10-27] MEDS: apixaban 5mg tablet PO SCH ×2 (07:37→19:54)
[2018-10-27] MEDS: gabapentin 300mg capsule PO SCH ×3 (07:37→20:35)
[2018-10-27] MEDS: piperacillin/tazo 3.375gm/50ml 50 ML IV SCH ×2 (07:37→15:41)
[2018-10-27] MEDS: metFORMIN 500mg tablet PO SCH (07:37)
[2018-10-27] MEDS: sotalol 80mg tablet PO SCH ×2 (07:40→19:56)
[2018-10-27] MEDS: K, MAG and/or Phos replacement - Verify level? MC SCH (08:00)
[2018-10-27 08:40] LABS: ANISOCYTOSIS FEW; PLATELET ESTIMATE NORMAL; POLYCHROMASIA FEW; TOTAL CELLS COUNTED 100; TOXIC GRANULATION 2+
[2018-10-27] MEDS: ESOMEPRAZOLE 40 MG VIAL IV SCH (09:39)
--- NOTE | 2018-10-27 09:54 | NUR ---
reassessment: Pt extubated advanced to pureed/NTL/carb controlled/heart healthy diet per POOL NURSE/MD. PO 100% avg carb controlled diet meeting needs. LB 10/26. Will continue to monitor. Rec: 1. continue carb controlled/heart healthy/pureed NTL diet per MD/POOL NURSE 2. weekly wts Addendum: 10/27/18 at [address] Amended: Links added.
--- NOTE | 2018-10-27 16:14 | NUR ---
Patients daughter in to see the patient, updated and answered all questions, she requested that when he is transferred to another floor that if he could be close to a nurses station, as he tries to do too much on his own and she doesn't want to see him fall. Explained to her that i would pass along the information and request
--- NOTE | 2018-10-27 18:17 | NUR ---
Patient in room CICU 2010. I have received report from Mei BOSS and had the opportunity to ask questions and assume patient care. Pt received awake alert & oriented sitting up in chair reading. No distress. Right IJ quad lumen central line is transduced CVP reads 8. Rhythm is sinus. On room air with oxygen saturations 95-96%. Occasional cough noted, pt utilizes yanker suction for sputum. No distress.
--- NOTE | 2018-10-27 18:17 | NUR ---
Problems reprioritized. Patient report given, questions answered & plan of care reviewed with Keyona BOSS.
[2018-10-27] MEDS: ipratropium/albuterol 3ml nebule NEB PRN (20:25)
[2018-10-27] MEDS: insulin glargine (Lantus) pen - multi-dose SQ SCH (21:00)
[2018-10-28] VITALS (20 sets, daily range): BP systolic 115–154; BP diastolic 52–99
[2018-10-28] MEDS: piperacillin/tazo 3.375gm/50ml 50 ML IV SCH ×2 (00:11→07:40)
[2018-10-28] MEDS ORDERED: VANCOMYCIN LEVEL IV ONE (01:30)
[2018-10-28 02:14] LABS: MAGNESIUM 1.5 MG/DL (1.5-2.4); PREALBUMIN 17.1 MG/DL (19-36)
[2018-10-28 02:24] LABS: BASOPHILS # (AUTO) 0.1 X10'3 (0-0.2); BASOPHILS % (AUTO) 0.5 % (0-1); EOSINOPHILS # (AUTO) 0.4 X10'3 (0-0.9); EOSINOPHILS % (AUTO) 2.8 % (0-6); HEMATOCRIT 31.7 % (42.0-52.0); HEMOGLOBIN 10.7 g/dl (14.0-17.9); LYMPHOCYTES # (AUTO) 1.4 X10'3 (1.1-4.8); LYMPHOCYTES % (AUTO) 10.9 % (21-51); MEAN CORPUSCULAR HEMOGLOBIN 32.2 PG (27.0-31.0); MEAN CORPUSCULAR HGB CONC 33.7 g/dL (33.0-36.5); MEAN CORPUSCULAR VOLUME 95.4 FL (78-98); MEAN PLATELET VOLUME 9.5 FL (7.4-10.4); MONOCYTES # (AUTO) 0.7 X10'3 (0-0.9); MONOCYTES % (AUTO) 5.6 % (2-12); NEUTROPHILS # (AUTO) 10.3 X10'3 (1.8-7.7); NEUTROPHILS % (AUTO) 80.2 % (42-75); PLATELET COUNT 221 X10'3 (140-440); RED BLOOD COUNT 3.32 X10'6 (4.70-6.10); WHITE BLOOD COUNT 12.8 X10'3 (4.5-11.0)
[2018-10-28 03:12] LABS: ALBUMIN 2.3 G/DL (3.4-5.0); ANION GAP 8 (8-16); BILIRUBIN,TOTAL 0.7 MG/DL (0.1-1.0); BLOOD UREA NITROGEN 24 MG/DL (7-18); CHLORIDE 109 MMOL/L (99-107); GLUCOSE 130 MG/DL (70-104); POTASSIUM 3.7 MMOL/L (3.5-5.1); SODIUM 143 MMOL/L (135-145); TOTAL CARBON DIOXIDE 25.6 MMOL/L (24-32); TOTAL PROTEIN 5.6 G/DL (6.4-8.2); eGFR 58 ML/MIN
[2018-10-28 03:13] LABS: ALANINE AMINOTRANSFERASE 26 U/L (12-78); ALBUMIN/GLOBULIN RATIO 0.7 (1.1-1.5); ALKALINE PHOSPHATASE 46 IU/L (46-116); ASPARTATE AMINO TRANSFERASE 21 U/L (10-37)
--- NOTE | 2018-10-28 06:20 | NUR ---
Problems reprioritized. Patient report given, questions answered & plan of care reviewed with day shift RN.
[2018-10-28] MEDS: ESOMEPRAZOLE 40 MG VIAL IV SCH (07:37)
[2018-10-28] MEDS: sotalol 80mg tablet PO SCH ×2 (07:37→20:08)
[2018-10-28] MEDS: lactobacillus rhamnosus 10,000 MMU CELLS/CAPSULE PO SCH ×2 (07:37→20:07)
[2018-10-28] MEDS: atorvastatin 10mg tablet PO SCH (07:39)
[2018-10-28] MEDS: metFORMIN 500mg tablet PO SCH (07:39)
[2018-10-28] MEDS: apixaban 5mg tablet PO SCH ×2 (07:39→20:07)
[2018-10-28] MEDS: tamsulosin 0.4mg capsule PO SCH ×2 (07:39→20:07)
[2018-10-28] MEDS: gabapentin 300mg capsule PO SCH ×3 (07:39→20:08)
[2018-10-28] MEDS: K, MAG and/or Phos replacement - Verify level? MC SCH (08:00)
[2018-10-28 10:43] LABS: NUCLEATED RED BLOOD CELLS 1 /100WBC (0-0); PLATELET ESTIMATE NORMAL; TOTAL CELLS COUNTED 100; TOXIC GRANULATION 2+
[2018-10-28 10:44] LABS: ELLIPTOCYTES 1+; POLYCHROMASIA FEW
[2018-10-28 10:45] LABS: HYPERSEGMENTED NEUTROPHILS FEW
[2018-10-28] MEDS ORDERED: calcium chloride 100 MG/1 ML inj IV ONE (12:47)
--- NOTE | 2018-10-28 14:50 | NUR ---
Patient arrived to room 3023B via w/c stable on RA. Placed on tele box and provided suctioning equipment. Patient placed in bedside chair. Patient watching TV with call light in reach. Denies pain at this time. Denies chest pain.
--- NOTE | 2018-10-28 15:20 | NUR ---
Called DR. Mayes in regards to bladder scan Q shift, he stated to DC
--- NOTE | 2018-10-28 16:00 | NUR ---
Problems reprioritized. Patient report given, questions answered & plan of care reviewed with Katrina BOSS. Patient transfered to PCU on portable monitor, tolerated well no changes, vital signs stable the entire time. Chart and meds accompanied patient and given to receiving nurse. Belongs with patient as well.
--- NOTE | 2018-10-28 16:15 | NUR ---
Patient in room CICU 2010. I have received report from Mei BOSS and had the opportunity to ask questions and assume patient care.
--- NOTE | 2018-10-28 18:20 | NUR ---
Patient in room PCU 3023. I have received report from Sachi BOSS and had the opportunity to ask questions and assume patient care.
--- NOTE | 2018-10-28 18:35 | NUR ---
Problems reprioritized. Patient report given, questions answered & plan of care reviewed with Veronica BOSS.
[2018-10-28] MEDS: ipratropium/albuterol 3ml nebule NEB PRN (19:27)
[2018-10-28] MEDS: insulin glargine (Lantus) pen - multi-dose SQ SCH (21:00)
[2018-10-29 03:00] VITALS: BP 112/73
--- NOTE | 2018-10-29 06:30 | NUR ---
Problems reprioritized. Patient report given, questions answered & plan of care reviewed with Shukri BOSS.
[2018-10-29 06:52] VITALS: BP 157/82
[2018-10-29] MEDS: lactobacillus rhamnosus 10,000 MMU CELLS/CAPSULE PO SCH ×2 (07:32→20:11)
[2018-10-29] MEDS: gabapentin 300mg capsule PO SCH ×3 (07:33→20:15)
[2018-10-29] MEDS: apixaban 5mg tablet PO SCH ×2 (07:33→20:12)
[2018-10-29] MEDS: sotalol 80mg tablet PO SCH ×2 (07:33→20:12)
[2018-10-29] MEDS: metFORMIN 500mg tablet PO SCH (07:34)
[2018-10-29] MEDS: tamsulosin 0.4mg capsule PO SCH ×2 (07:34→20:11)
[2018-10-29] MEDS: atorvastatin 10mg tablet PO SCH (07:34)
[2018-10-29] MEDS: K, MAG and/or Phos replacement - Verify level? MC SCH (08:00)
[2018-10-29 08:01] LABS: BASOPHILS # (AUTO) 0.1 X10'3 (0-0.2); BASOPHILS % (AUTO) 0.8 % (0-1); EOSINOPHILS # (AUTO) 0.4 X10'3 (0-0.9); EOSINOPHILS % (AUTO) 3.1 % (0-6); HEMATOCRIT 31.8 % (42.0-52.0); HEMOGLOBIN 10.6 g/dl (14.0-17.9); LYMPHOCYTES # (AUTO) 1.4 X10'3 (1.1-4.8); LYMPHOCYTES % (AUTO) 11.9 % (21-51); MEAN CORPUSCULAR HEMOGLOBIN 31.9 PG (27.0-31.0); MEAN CORPUSCULAR HGB CONC 33.3 g/dL (33.0-36.5); MEAN CORPUSCULAR VOLUME 95.8 FL (78-98); MEAN PLATELET VOLUME 9.9 FL (7.4-10.4); MONOCYTES # (AUTO) 0.8 X10'3 (0-0.9); MONOCYTES % (AUTO) 6.7 % (2-12); NEUTROPHILS # (AUTO) 8.9 X10'3 (1.8-7.7); NEUTROPHILS % (AUTO) 77.5 % (42-75); PLATELET COUNT 229 X10'3 (140-440); RED BLOOD COUNT 3.32 X10'6 (4.70-6.10); RED CELL DISTRIBUTION WIDTH 15.1 % (11.5-14.5); WHITE BLOOD COUNT 11.5 X10'3 (4.5-11.0)
[2018-10-29 08:09] LABS: MAGNESIUM 1.6 MG/DL (1.5-2.4); PHOSPHORUS 3.4 MG/DL (2.3-4.5)
[2018-10-29] MEDS: ipratropium/albuterol 3ml nebule NEB PRN ×2 (09:33→19:59)
[2018-10-29 09:34] LABS: ALANINE AMINOTRANSFERASE 25 U/L (12-78); ALBUMIN 2.3 G/DL (3.4-5.0); ALBUMIN/GLOBULIN RATIO 0.7 (1.1-1.5); ALKALINE PHOSPHATASE 45 IU/L (46-116); ANION GAP 9 (8-16); ASPARTATE AMINO TRANSFERASE 21 U/L (10-37); BILIRUBIN,TOTAL 0.6 MG/DL (0.1-1.0); BLOOD UREA NITROGEN 20 MG/DL (7-18); BUN/CREATININE RATIO 17.5 (5.4-32.0); CALCIUM 8.1 MG/DL (8.5-10.1); CHLORIDE 108 MMOL/L (99-107); CREATININE 1.14 MG/DL (0.60-1.10); GLUCOSE 118 MG/DL (70-104); POTASSIUM 4.2 MMOL/L (3.5-5.1); SODIUM 141 MMOL/L (135-145); TOTAL CARBON DIOXIDE 24.5 MMOL/L (24-32); TOTAL PROTEIN 5.8 G/DL (6.4-8.2); eGFR 61 ML/MIN
[2018-10-29 11:00] VITALS: BP 138/40
[2018-10-29] MEDS: acetaminophen 325mg tablet PO PRN (11:08)
[2018-10-29 11:55] LABS: HYPERSEGMENTED NEUTROPHILS FEW; PLATELET ESTIMATE NORMAL; TOTAL CELLS COUNTED 100; TOXIC GRANULATION 4+
[2018-10-29 11:56] LABS: ELLIPTOCYTES FEW
[2018-10-29 15:00] VITALS: BP 159/60
--- NOTE | 2018-10-29 18:31 | NUR ---
Problems reprioritized. Patient report given, questions answered & plan of care reviewed with Caro BOSS.
[2018-10-29 19:00] VITALS: BP 141/68
[2018-10-29] MEDS: celeCOXIB 100mg capsule PO SCH (20:12)
[2018-10-29] MEDS: insulin glargine (Lantus) pen - multi-dose SQ SCH (22:00)
[2018-10-29 23:00] VITALS: BP 151/85
[2018-10-30] MEDS ORDERED: VANCOMYCIN LEVEL IV ONE (01:30)
[2018-10-30 01:45] LABS: BASOPHILS # (AUTO) 0.1 X10'3 (0-0.2); BASOPHILS % (AUTO) 1.1 % (0-1); EOSINOPHILS # (AUTO) 0.3 X10'3 (0-0.9); EOSINOPHILS % (AUTO) 2.8 % (0-6); HEMATOCRIT 31.2 % (42.0-52.0); HEMOGLOBIN 10.7 g/dl (14.0-17.9); LYMPHOCYTES # (AUTO) 1.3 X10'3 (1.1-4.8); LYMPHOCYTES % (AUTO) 14.7 % (21-51); MEAN CORPUSCULAR HEMOGLOBIN 32.2 PG (27.0-31.0); MEAN CORPUSCULAR HGB CONC 34.2 g/dL (33.0-36.5); MEAN CORPUSCULAR VOLUME 94.1 FL (78-98); MEAN PLATELET VOLUME 9.4 FL (7.4-10.4); MONOCYTES # (AUTO) 0.6 X10'3 (0-0.9); MONOCYTES % (AUTO) 6.5 % (2-12); NEUTROPHILS # (AUTO) 6.7 X10'3 (1.8-7.7); NEUTROPHILS % (AUTO) 74.9 % (42-75); PLATELET COUNT 249 X10'3 (140-440); RED BLOOD COUNT 3.32 X10'6 (4.70-6.10); RED CELL DISTRIBUTION WIDTH 15.6 % (11.5-14.5)
[2018-10-30 01:55] LABS: MAGNESIUM 1.6 MG/DL (1.5-2.4); PHOSPHORUS 3.8 MG/DL (2.3-4.5)
[2018-10-30 02:37] LABS: ALANINE AMINOTRANSFERASE 22 U/L (12-78); ALBUMIN 2.3 G/DL (3.4-5.0); ALBUMIN/GLOBULIN RATIO 0.7 (1.1-1.5); ALKALINE PHOSPHATASE 51 IU/L (46-116); ANION GAP 8 (8-16); ASPARTATE AMINO TRANSFERASE 18 U/L (10-37); BILIRUBIN,TOTAL 0.5 MG/DL (0.1-1.0); BLOOD UREA NITROGEN 22 MG/DL (7-18); BUN/CREATININE RATIO 19.3 (5.4-32.0); CHLORIDE 109 MMOL/L (99-107); CREATININE 1.14 MG/DL (0.60-1.10); GLUCOSE 133 MG/DL (70-104); POTASSIUM 3.8 MMOL/L (3.5-5.1); SODIUM 142 MMOL/L (135-145); TOTAL CARBON DIOXIDE 24.7 MMOL/L (24-32); TOTAL PROTEIN 5.8 G/DL (6.4-8.2); eGFR 61 ML/MIN
[2018-10-30 03:00] VITALS: BP 120/59
[2018-10-30 06:00] VITALS: BP 123/83
--- NOTE | 2018-10-30 06:15 | NUR ---
Patient in room PCU 3023. I have received report from Caro BOSS and had the opportunity to ask questions and assume patient care.
--- NOTE | 2018-10-30 06:18 | NUR ---
Problems reprioritized. Patient report given, questions answered & plan of care reviewed with GERA Watt.
[2018-10-30] MEDS: celeCOXIB 100mg capsule PO SCH (07:26)
[2018-10-30] MEDS: lactobacillus rhamnosus 10,000 MMU CELLS/CAPSULE PO SCH (07:26)
[2018-10-30] MEDS: metFORMIN 500mg tablet PO SCH (07:27)
[2018-10-30] MEDS: tamsulosin 0.4mg capsule PO SCH (07:27)
[2018-10-30] MEDS: sotalol 80mg tablet PO SCH (07:27)
[2018-10-30] MEDS: atorvastatin 10mg tablet PO SCH (07:27)
[2018-10-30] MEDS: gabapentin 300mg capsule PO SCH (07:27)
[2018-10-30] MEDS: apixaban 5mg tablet PO SCH (07:28)
[2018-10-30] MEDS: K, MAG and/or Phos replacement - Verify level? MC SCH (07:52)
[2018-10-30] MEDS: acetaminophen 325mg tablet PO PRN (08:31)
[2018-10-30] MEDS ORDERED: tamsulosin capsule PO (09:41)
[2018-10-30] MEDS ORDERED: ALB0.5UD IH (11:21)
--- NOTE | 2018-10-30 13:18 | NUR ---
Patient Discharged. Patient discharged home via private vehicle accompanied by patient's daughter. IV catheter removed prior to discharge, catheter intact. Tele leads removed from patient prior to discharge, tele box returned to [employer]. New prescriptions called into patient's preferred pharmacy of [facility] in [place]. Discharge instructions provided to patient and discussed with patient via RN prior to discharge. All patient belongings sent home with patient prior to discharge. All questions and concerns addressed prior to discharge. Patient escorted out of facility using front wheel walker accompanied by RN, patient's daughter, and nurse's aide.
== END 2018-10-30 13:05 | disposition home health service (06) | DRG 871 ==
LOC: ER 21:11 → CICU 2S 23:24 → CMPBEDREQ 23:34 → PCU 3S 10-28 17:04
PROVIDERS: ADMIT Internal Medicine Critical Care Medicine; ATTEND Internal Medicine Critical Care Medicine
PROC: 5A1945Z Respiratory Ventilation, 24-96 Consecutive Hours (ICD-10-PCS; principal; 2018-10-22)
PROC: 0BH17EZ Insertion of Endotracheal Airway into Trachea, Via Natural or Artificial Opening (ICD-10-PCS; 2018-10-22)
PROC: 0D9670Z Drainage of Stomach with Drainage Device, Via Natural or Artificial Opening (ICD-10-PCS; 2018-10-22)
PROC: 02HV33Z Insertion of Infusion Device into Superior Vena Cava, Percutaneous Approach (ICD-10-PCS; 2018-10-22)
PROC: B548ZZA Ultrasonography of Superior Vena Cava, Guidance (ICD-10-PCS; 2018-10-22)
PROC: B32T1ZZ Computerized Tomography (CT Scan) of Left Pulmonary Artery using Low Osmolar Contrast (ICD-10-PCS; 2018-10-23)
PROC: B3201ZZ Computerized Tomography (CT Scan) of Thoracic Aorta using Low Osmolar Contrast (ICD-10-PCS; 2018-10-23)
PROC: B32S1ZZ Computerized Tomography (CT Scan) of Right Pulmonary Artery using Low Osmolar Contrast (ICD-10-PCS; 2018-10-23)
PROC: 5A09357 Assistance with Respiratory Ventilation, Less than 24 Consecutive Hours, Continuous Positive Airway Pressure (ICD-10-PCS; 2018-10-25)
PROC: 5A09357 Assistance with Respiratory Ventilation, Less than 24 Consecutive Hours, Continuous Positive Airway Pressure (ICD-10-PCS; 2018-10-27)
PROC: 5A09357 Assistance with Respiratory Ventilation, Less than 24 Consecutive Hours, Continuous Positive Airway Pressure (ICD-10-PCS; 2018-10-28)
PROC: 5A09357 Assistance with Respiratory Ventilation, Less than 24 Consecutive Hours, Continuous Positive Airway Pressure (ICD-10-PCS; 2018-10-29)
DX: A41.9 Sepsis, unspecified organism (principal); I46.9 Cardiac arrest, cause unspecified; J18.9 Pneumonia, unspecified organism; R57.1 Hypovolemic shock; R65.21 Severe sepsis with septic shock; J96.90 Respiratory failure, unspecified, unspecified whether with hypoxia or hypercapnia; S22.49XA Multiple fractures of ribs, unspecified side, initial encounter for closed fracture; N17.9 Acute kidney failure, unspecified; I48.2 Chronic atrial fibrillation; Z66 Do not resuscitate; M54.9 Dorsalgia, unspecified; X58.XXXA Exposure to other specified factors, initial encounter; G89.29 Other chronic pain; I10 Essential (primary) hypertension; Z87.891 Personal history of nicotine dependence; Z79.899 Other long term (current) drug therapy; T83.098A Other mechanical complication of other urinary catheter, initial encounter; Y73.3 Surgical instruments, materials and gastroenterology and urology devices (including sutures) associated with adverse incidents; Y92.238 Other place in hospital as the place of occurrence of the external cause; Y93.89 Activity, other specified; Y92.89 Other specified places as the place of occurrence of the external cause; Y99.8 Other external cause status; Z79.01 Long term (current) use of anticoagulants
CPT/HCPCS: 31500; 36415; 36600; 70450; 71045; 71275; 76937; 80053; 80202; 81001; 82803; 82810; 82948; 83036; 83605; 83735; 84100; 84132; 84134; 84145; 84484; 85018; 85025; 85379; 85610; 85730; 87040; 87070; 87077; 87081; 87186; 92508; 92616; 93005; 93306; 93970; 94002; 94003; 94640; 94760; 96365; 96366; 96368; 96375; 97110; 97116; 97162; 97530; 99283; G0378; J0282; J1250; J1650; J1720; J1815; J2212; J2250; J2543; J3010; J3370; J3480; J3490; P9047; Q9967

== ENCOUNTER 2019-02-17 06:42 | Day surgery (SDC) | payer MEDICARE, BC ==
[2019-02-17] VITALS (18 sets, daily range): BP systolic 89–144; BP diastolic 35–99
[~2019-02-17] VITALS: Ht 175.3 cm; Wt 98.0 kg
[~2019-02-17 06:42] MED LIST changes: -ALBU6.7H9 INH; +ALBU8.5H8 IH; -HYDR25TA4 PO; -LEVO500T2 PO; +LEVO500T89 PO; -NORepinephrine bitart. inj. IV ONE; +SIMV-42 PO; -SIMV20TA5 PO; +tamsulosin capsule PO
[2019-02-17] MEDS ORDERED: normal saline 1000ml 1,000 ML IV PRN (07:05)
[2019-02-17] MEDS ORDERED: albumin 25% 100mL bottle x 1 IV PRN (07:05)
[2019-02-17] MEDS ORDERED: ASPI-1265 PO (07:18)
[2019-02-17] MEDS ORDERED: pneumococcal 23-VAL P-sac vacc 25 mcg/0.5ml vial IMVAC ONE (07:40)
[2019-02-17 07:48] LABS: EOSINOPHILS # (AUTO) 0.2 X10'3 (0-0.9); HEMOGLOBIN 11.3 g/dl (14.0-17.9); MEAN CORPUSCULAR VOLUME 94.8 FL (78-98); RED CELL DISTRIBUTION WIDTH 14.8 % (11.5-14.5)
[2019-02-17 07:49] LABS: BASOPHILS # (AUTO) 0.1 X10'3 (0-0.2); HEMATOCRIT 33.2 % (42.0-52.0); LYMPHOCYTES # (AUTO) 1.4 X10'3 (1.1-4.8); LYMPHOCYTES % (AUTO) 25.6 % (21-51); MEAN CORPUSCULAR HEMOGLOBIN 32.4 PG (27.0-31.0); MEAN CORPUSCULAR HGB CONC 34.1 g/dL (33.0-36.5); MEAN PLATELET VOLUME 9.7 FL (7.4-10.4); MONOCYTES # (AUTO) 0.5 X10'3 (0-0.9); MONOCYTES % (AUTO) 9.2 % (2-12); NEUTROPHILS # (AUTO) 3.4 X10'3 (1.8-7.7); NEUTROPHILS % (AUTO) 60.2 % (42-75); PLATELET COUNT 231 X10'3 (140-440); RED BLOOD COUNT 3.51 X10'6 (4.70-6.10); WHITE BLOOD COUNT 5.6 X10'3 (4.5-11.0)
[2019-02-17 07:55] LABS: ALBUMIN 3.3 G/DL (3.4-5.0); ANION GAP 6 (8-16); BLOOD UREA NITROGEN 36 MG/DL (7-18); BUN/CREATININE RATIO 23.5 (5.4-32.0); CALCIUM 8.5 MG/DL (8.5-10.1); CHLORIDE 107 MMOL/L (99-107); CREATININE 1.53 MG/DL (0.60-1.10); GLUCOSE 102 MG/DL (70-104); POTASSIUM 4.7 MMOL/L (3.5-5.1); SODIUM 141 MMOL/L (135-145); TOTAL CARBON DIOXIDE 27.6 MMOL/L (24-32); eGFR 44 ML/MIN
[2019-02-17] MEDS ORDERED: fentaNYL/PF 50MCG/1 ML 2ML syringe IV PRN (08:10)
[2019-02-17] MEDS ORDERED: LIDOcaine 1%/PF 5ML 10 MG/ML VIAL SQ ONE (08:10)
[2019-02-17] MEDS ORDERED: heparin 1,000 UNITS/NS 500ml 500 ML ICATH ONE (08:10)
[2019-02-17] MEDS ORDERED: midazolam 2 mg/2 ml injection IV PRN (08:10)
[2019-02-17] MEDS ORDERED: normal saline 1000ml 1,000 ML IV SCH (08:21)
[2019-02-17] MEDS ORDERED: heparin 1,000 UNITS/NS 500ml 500 ML ONE (08:27)
[2019-02-17] MEDS ORDERED: fentaNYL/PF 50MCG/1 ML 2ML syringe ONE (08:27)
[2019-02-17] MEDS ORDERED: LIDOcaine 1%/PF 5ML 10 MG/ML VIAL ONE (08:27)
[2019-02-17] MEDS ORDERED: iohexol 300mg/ml 100ml inj. ONE (08:27)
[2019-02-17] MEDS ORDERED: midazolam 2 mg/2 ml injection ONE (08:27)
== END 2019-02-17 15:50 | disposition home or self-care (01) ==
LOC: SSTAY O 06:42
PROVIDERS: ATTEND Radiology Diagnostic Radiology
DX: T82.858A Stenosis of other vascular prosthetic devices, implants and grafts, initial encounter (principal); G47.30 Sleep apnea, unspecified; I48.91 Unspecified atrial fibrillation; E78.5 Hyperlipidemia, unspecified; I10 Essential (primary) hypertension; Z79.899 Other long term (current) drug therapy; Z98.890 Other specified postprocedural states; Z79.84 Long term (current) use of oral hypoglycemic drugs; Y83.8 Other surgical procedures as the cause of abnormal reaction of the patient, or of later complication, without mention of misadventure at the time of the procedure; Y92.89 Other specified places as the place of occurrence of the external cause; Z23 Encounter for immunization
CPT/HCPCS: 36246; 36415; 75716; 75736; 76937; 80048; 85025; 85610; 90732; 99152; 99153; C1769; C1894; G0008; J1644; J2250; J3010; J7030; Q9967; 36245

== ENCOUNTER 2020-06-23 06:57 | Day surgery (SDC) | payer MEDICARE, BC ==
[2020-06-23] VITALS (8 sets, daily range): BP systolic 114–138; BP diastolic 54–81
[~2020-06-23] VITALS: Ht 177.8 cm; Wt 107.5 kg
[~2020-06-23 06:57] MED LIST changes: -ALBU8.5H8 IH; +ASPI-1265 PO; -LEVO500T89 PO; -tamsulosin capsule PO
[2020-06-23] MEDS ORDERED: normal saline 1000ml 1,000 ML IV SCH ×2 (07:25→10:40)
[2020-06-23] MEDS ORDERED: LUTE40CA PO (07:37)
[2020-06-23] MEDS ORDERED: HYDR12.55 PO (07:37)
[2020-06-23] MEDS ORDERED: FLO0.4C PO (07:37)
[2020-06-23 07:46] LABS: BASOPHILS # (AUTO) 0.1 X10'3 (0-0.2); BASOPHILS % (AUTO) 1.1 % (0-1); EOSINOPHILS # (AUTO) 0.2 X10'3 (0-0.9); EOSINOPHILS % (AUTO) 4.2 % (0-6); HEMATOCRIT 33.6 % (42.0-52.0); HEMOGLOBIN 11.3 g/dl (14.0-17.9); LYMPHOCYTES # (AUTO) 1.3 X10'3 (1.1-4.8); MEAN CORPUSCULAR HGB CONC 33.6 g/dL (33.0-36.5); MEAN CORPUSCULAR VOLUME 98.4 FL (78-98); MEAN PLATELET VOLUME 10.1 FL (7.4-10.4); MONOCYTES # (AUTO) 0.4 X10'3 (0-0.9); MONOCYTES % (AUTO) 8.8 % (2-12); NEUTROPHILS # (AUTO) 3.1 X10'3 (1.8-7.7); NEUTROPHILS % (AUTO) 60.9 % (42-75); PLATELET COUNT 198 X10'3 (140-440); RED BLOOD COUNT 3.42 X10'6 (4.70-6.10); RED CELL DISTRIBUTION WIDTH 15.1 % (11.5-14.5); WHITE BLOOD COUNT 5.1 X10'3 (4.5-11.0)
[2020-06-23 08:13] LABS: ALBUMIN 3.6 G/DL (3.4-5.0); ANION GAP 8 (8-16); BLOOD UREA NITROGEN 32 MG/DL (7-18); BUN/CREATININE RATIO 23.5 (5.4-32.0); CALCIUM 8.8 MG/DL (8.5-10.1); CHLORIDE 110 MMOL/L (99-107); CREATININE 1.36 MG/DL (0.60-1.10); GLUCOSE 115 MG/DL (70-104); SODIUM 143 MMOL/L (135-145); TOTAL CARBON DIOXIDE 24.7 MMOL/L (24-32); eGFR 50 ML/MIN
[2020-06-23] MEDS ORDERED: LIDOcaine 1%/PF 5ML 10 MG/ML VIAL ONE (08:27)
[2020-06-23] MEDS ORDERED: iohexol 300mg/ml 100ml inj. ONE (08:28)
[2020-06-23] MEDS ORDERED: midazolam 1 mg/ML 2ml injection ONE (08:42)
[2020-06-23] MEDS ORDERED: fentaNYL/PF 50MCG/1 ML 2ML syringe ONE (08:42)
[2020-06-23] MEDS ORDERED: heparin 1,000 UNITS/NS 500ml 500 ML ONE (08:52)
[2020-06-23] MEDS ORDERED: ceFAZolin/D5W- 1GM premix 50 ML IV ONE (09:45)
[2020-06-23] MEDS ORDERED: heparin 1,000unit/ml 10ml vial 10 ML ONE (09:49)
== END 2020-06-23 14:10 | disposition home or self-care (01) ==
LOC: SSTAY O 06:57
PROVIDERS: ATTEND Radiology Vascular & Interventional Radiology
DX: E11.51 Type 2 diabetes mellitus with diabetic peripheral angiopathy without gangrene (principal); I70.211 Atherosclerosis of native arteries of extremities with intermittent claudication, right leg; I48.91 Unspecified atrial fibrillation; I10 Essential (primary) hypertension; Z79.01 Long term (current) use of anticoagulants; Z79.84 Long term (current) use of oral hypoglycemic drugs; Z79.899 Other long term (current) drug therapy; Z87.891 Personal history of nicotine dependence; Z72.89 Other problems related to lifestyle; Z83.3 Family history of diabetes mellitus; Z82.49 Family history of ischemic heart disease and other diseases of the circulatory system
CPT/HCPCS: 36246; 36415; 75716; 76937; 80048; 82948; 85025; 85610; 99152; 99153; C1760; C1769; C1887; C1894; J1644; J2250; J3010; Q9967; 75710; A6213; G0269

== ENCOUNTER 2020-09-07 14:34 | Emergency (ER) | payer BC ==
[~2020-09-07] VITALS: Ht 175.3 cm; Wt 109.1 kg
[~2020-09-07 14:34] MED LIST changes: -ASPI-1265 PO; +FLO0.4C PO; +HYDR12.55 PO; +LUTE40CA PO
[2020-09-07 15:03] VITALS: BP 177/62
[2020-09-07 15:36] LABS: BASOPHILS % (AUTO) 0.6 % (0-1); EOSINOPHILS # (AUTO) 0.2 X10'3 (0-0.9); EOSINOPHILS % (AUTO) 4.3 % (0-6); HEMATOCRIT 33.4 % (42.0-52.0); LYMPHOCYTES # (AUTO) 1.4 X10'3 (1.1-4.8); LYMPHOCYTES % (AUTO) 28.2 % (21-51); MEAN CORPUSCULAR VOLUME 100.1 FL (78-98); MEAN PLATELET VOLUME 10.2 FL (7.4-10.4); MONOCYTES # (AUTO) 0.4 X10'3 (0-0.9); MONOCYTES % (AUTO) 8.3 % (2-12); NEUTROPHILS % (AUTO) 58.6 % (42-75); PLATELET COUNT 216 X10'3 (140-440); RED BLOOD COUNT 3.34 X10'6 (4.70-6.10); RED CELL DISTRIBUTION WIDTH 15.7 % (11.5-14.5)
[2020-09-07 15:51] LABS: ALANINE AMINOTRANSFERASE 18 U/L (12-78); ALBUMIN 3.7 G/DL (3.4-5.0); ALKALINE PHOSPHATASE 59 IU/L (46-116); ANION GAP 8 (8-16); ASPARTATE AMINO TRANSFERASE 18 U/L (10-37); BILIRUBIN,TOTAL 0.8 MG/DL (0.1-1.0); BLOOD UREA NITROGEN 28 MG/DL (7-18); BUN/CREATININE RATIO 22.8 (5.4-32.0); CALCIUM 8.6 MG/DL (8.5-10.1); CHLORIDE 110 MMOL/L (99-107); CREATININE 1.23 MG/DL (0.60-1.10); GLUCOSE 93 MG/DL (70-104); POTASSIUM 5.3 MMOL/L (3.5-5.1); SODIUM 142 MMOL/L (135-145); TOTAL CARBON DIOXIDE 24.2 MMOL/L (24-32); TOTAL PROTEIN 7.5 G/DL (6.4-8.2); eGFR 56 ML/MIN
== END 2020-09-07 18:23 | disposition home or self-care (01) ==
LOC: ER 14:35
DX: E87.5 Hyperkalemia (principal); R22.41 Localized swelling, mass and lump, right lower limb; M54.9 Dorsalgia, unspecified; I48.91 Unspecified atrial fibrillation; I10 Essential (primary) hypertension; I25.10 Atherosclerotic heart disease of native coronary artery without angina pectoris; G47.30 Sleep apnea, unspecified; Z87.01 Personal history of pneumonia (recurrent); G89.29 Other chronic pain; Z98.890 Other specified postprocedural states; Z79.899 Other long term (current) drug therapy
CPT/HCPCS: 36415; 71045; 80053; 83880; 84484; 85025; 93005; 99285

== ENCOUNTER 2022-03-22 09:16 | Inpatient (IN) | payer MEDICARE, BC ==
[~2022-03-22] VITALS: Ht 177.8 cm; Wt 100.0 kg
[~2022-03-22 09:16] MED LIST changes: +AMLO10TA48 PO; +GABA600T13 PO; -LOSA100T57 PO; +METF-1203 PO; -METF-950 PO
[2022-03-22 10:16] LABS: BASOPHILS % (AUTO) 0.2 % (0-1); EOSINOPHILS % (AUTO) 0 % (0-6); HEMATOCRIT 44.1 % (42.0-52.0); HEMOGLOBIN 14.6 g/dl (14.0-17.9); LYMPHOCYTES # (AUTO) 0.4 X10'3 (1.1-4.8); LYMPHOCYTES % (AUTO) 2.8 % (21-51); MEAN CORPUSCULAR HEMOGLOBIN 33.1 PG (27.0-31.0); MEAN CORPUSCULAR HGB CONC 33.2 g/dL (33.0-36.5); MEAN CORPUSCULAR VOLUME 99.9 FL (78-98); MEAN PLATELET VOLUME 9.8 FL (7.4-10.4); MONOCYTES # (AUTO) 0.5 X10'3 (0-0.9); MONOCYTES % (AUTO) 3.4 % (2-12); NEUTROPHILS # (AUTO) 12.8 X10'3 (1.8-7.7); NEUTROPHILS % (AUTO) 93.6 % (42-75); PLATELET COUNT 210 X10'3 (140-440); RED BLOOD COUNT 4.41 X10'6 (4.70-6.10); RED CELL DISTRIBUTION WIDTH 17.1 % (11.5-14.5); WHITE BLOOD COUNT 13.7 X10'3 (4.5-11.0)
[2022-03-22 10:30] LABS: ALANINE AMINOTRANSFERASE 26 U/L (12-78); ALBUMIN 3.7 G/DL (3.4-5.0); ALBUMIN/GLOBULIN RATIO 0.9 (1.1-1.5); ALKALINE PHOSPHATASE 74 IU/L (46-116); ANION GAP 13 (8-16); ASPARTATE AMINO TRANSFERASE 36 U/L (10-37); BILIRUBIN,TOTAL 1.8 MG/DL (0.1-1.0); BLOOD UREA NITROGEN 23 MG/DL (7-18); CALCIUM 8.6 MG/DL (8.5-10.1); CHLORIDE 97 MMOL/L (99-107); CREATINE KINASE 402 U/L (39-308); GLUCOSE 173 MG/DL (70-104); MAGNESIUM 1.6 MG/DL (1.5-2.4); SODIUM 134 MMOL/L (135-145); TOTAL PROTEIN 7.7 G/DL (6.4-8.2)
[2022-03-22 10:34] LABS: BUN/CREATININE RATIO 16.3 (5.4-32.0); CREATININE 1.41 MG/DL (0.60-1.10); eGFR 48 ML/MIN
[2022-03-22] MEDS ORDERED: magnesium 4gm in 100ml NS 100 ML IV ONE (10:35)
[2022-03-22] MEDS ORDERED: potassium Cl 20 mEq SR tablet PO STA (10:35)
[2022-03-22] MEDS ORDERED: ringers solution, lacted 1,000 ML IV ONE (10:40)
[2022-03-22 12:37] VITALS: BP 114/64
[2022-03-22] MEDS ORDERED: morphine 4 MG/ML inj SYRINge IV ONE (12:50)
[2022-03-22] MEDS ORDERED: ondansetron/PF 4mg/2ml inj IV ONE (12:50)
[2022-03-22] MEDS ORDERED: normal saline 1000ML IV soln IVB ONE (12:55)
[2022-03-22] MEDS ORDERED: magnesium Cl slow-release 64mg tablet PO PRN (13:45)
[2022-03-22] MEDS ORDERED: potassium Cl 40MEQ/1/2NS 520ml 520 ML IV PRN (13:45)
[2022-03-22] MEDS ORDERED: normal saline 1000ml 1,000 ML IV SCH (13:45)
[2022-03-22] MEDS ORDERED: magnesium 4gm in 100ml NS 100 ML IV PRN (13:45)
[2022-03-22] MEDS ORDERED: ondansetron/PF 4mg/2ml inj IV PRN (13:45)
[2022-03-22] MEDS ORDERED: potassium Cl 20 mEq SR tablet PO PRN ×2 (13:45)
[2022-03-22] MEDS ORDERED: acetaminophen 325mg tablet PO PRN (13:45)
[2022-03-22] MEDS ORDERED: K and/or MAG REPLACEMENT MC SCH (20:00)
== END 2022-03-22 14:37 | disposition home or self-care (01) | DRG 641 ==
LOC: ER 09:17 → ED HOLD 13:47
PROVIDERS: ADMIT Internal Medicine; ATTEND Internal Medicine
DX: E87.6 Hypokalemia (principal); E86.0 Dehydration; E11.42 Type 2 diabetes mellitus with diabetic polyneuropathy; E78.00 Pure hypercholesterolemia, unspecified; Z20.822 Contact with and (suspected) exposure to COVID-19; G47.30 Sleep apnea, unspecified; W18.39XA Other fall on same level, initial encounter; G89.29 Other chronic pain; R11.2 Nausea with vomiting, unspecified; M54.9 Dorsalgia, unspecified; R19.7 Diarrhea, unspecified; I11.0 Hypertensive heart disease with heart failure; I48.91 Unspecified atrial fibrillation; I50.9 Heart failure, unspecified; N40.0 Benign prostatic hyperplasia without lower urinary tract symptoms; S90.511A Abrasion, right ankle, initial encounter; Z79.01 Long term (current) use of anticoagulants; Z79.84 Long term (current) use of oral hypoglycemic drugs; Z90.49 Acquired absence of other specified parts of digestive tract; Y93.89 Activity, other specified; Y92.89 Other specified places as the place of occurrence of the external cause; Y99.8 Other external cause status
CPT/HCPCS: 36415; 80053; 82550; 83735; 85025; 87811; 93005; 96365; 96366; 99285; A6223; A6446; A6449; G0378; J3475; J7030; J7120

== ENCOUNTER 2023-04-15 19:53 | Emergency (ER) | payer MEDICARE, BC ==
[~2023-04-15] VITALS: Ht 177.8 cm; Wt 93.6 kg
[2023-04-15] MEDS ORDERED: normal saline 1000ML IV soln IVB ONE (20:05)
[2023-04-15 20:32] LABS: BASOPHILS # (AUTO) 0.1 X10'3 (0-0.2); BASOPHILS % (AUTO) 1.4 % (0-1); EOSINOPHILS # (AUTO) 0.1 X10'3 (0-0.9); EOSINOPHILS % (AUTO) 2.3 % (0-6); HEMATOCRIT 35.8 % (42.0-52.0); LYMPHOCYTES # (AUTO) 1.6 X10'3 (1.1-4.8); MEAN CORPUSCULAR HEMOGLOBIN 34.5 PG (27.0-31.0); MEAN CORPUSCULAR HGB CONC 33.5 g/dL (33.0-36.5); MONOCYTES # (AUTO) 0.5 X10'3 (0-0.9); MONOCYTES % (AUTO) 8.5 % (2-12); NEUTROPHILS # (AUTO) 3.5 X10'3 (1.8-7.7); NEUTROPHILS % (AUTO) 59.8 % (42-75); PLATELET COUNT 302 X10'3 (140-440); RED BLOOD COUNT 3.48 X10'6 (4.70-6.10); RED CELL DISTRIBUTION WIDTH 20.6 % (11.5-14.5); WHITE BLOOD COUNT 5.8 X10'3 (4.5-11.0)
[2023-04-15 20:46] LABS: ALANINE AMINOTRANSFERASE 19 U/L (12-78); ALBUMIN 4.1 G/DL (3.4-5.0); ALBUMIN/GLOBULIN RATIO 0.9 (1.1-1.5); ALKALINE PHOSPHATASE 61 IU/L (46-116); ANION GAP 9 (8-16); ASPARTATE AMINO TRANSFERASE 26 U/L (10-37); BILIRUBIN,TOTAL 1.4 MG/DL (0.1-1.0); BLOOD UREA NITROGEN 18 MG/DL (7-18); BUN/CREATININE RATIO 15.8 (10.0-20.0); CALCIUM 9.1 MG/DL (8.5-10.1); CHLORIDE 101 MMOL/L (99-107); CREATININE 1.14 MG/DL (0.60-1.10); GLUCOSE 121 MG/DL (70-104); POTASSIUM 3.4 MMOL/L (3.5-5.1); SODIUM 139 MMOL/L (135-145); TOTAL CARBON DIOXIDE 29.1 MMOL/L (24-32); TOTAL PROTEIN 8.5 G/DL (6.4-8.2); eGFR 61 ML/MIN
[2023-04-15 20:51] LABS: ETHANOL 126 MG/DL (<10)
[2023-04-15 21:01] LABS: BILIRUBIN,URINE NEGATIVE (Neg); CLARITY,URINE CLEAR (Clear); COLOR,URINE YELLOW (Yellow); GLUCOSE, URINE NEGATIVE (Neg); KETONES,URINE NEGATIVE (Neg); LEUKOCYTE ESTERASE ,URINE NEGATIVE (Neg); NITRITES, URINE NEGATIVE (Neg); OCCULT BLOOD,URINE NEGATIVE (Neg); PROTEIN,URINE NEGATIVE (Neg); UROBILINOGEN,URINE 0.2 E.U/dL (0.2-1.0)
[2023-04-15 21:05] LABS: UA COLLECTION TYPE CLN CATCH MIDSTREAM
[2023-04-15 21:10] LABS: ANISOCYTOSIS 3+; ELLIPTOCYTES 1+; PLATELET ESTIMATE NORMAL
[2023-04-15 21:14] LABS: URINE AMPHETAMINE SCREEN NEGATIVE (Neg); URINE BARBITUATE SCREEN NEGATIVE (Neg); URINE BENZODIAZEPINES SCREEN NEGATIVE (Neg); URINE CANNABINOID SCREEN NEGATIVE (Neg); URINE COCAINE SCREEN NEGATIVE (Neg); URINE METHADONE SCREEN NEGATIVE (Neg); URINE OPIATE SCREEN NEGATIVE (Neg); URINE PHENCYCLIDINE SCREEN NEGATIVE (Neg)
[2023-04-15 21:53] VITALS: BP 132/70; PULSE 63; RESP 16; TEMP 98.6; O2SAT 99
== END 2023-04-15 21:57 | disposition home or self-care (01) ==
LOC: ER 19:54
DX: F10.129 Alcohol abuse with intoxication, unspecified (principal); E78.00 Pure hypercholesterolemia, unspecified; I10 Essential (primary) hypertension; E11.9 Type 2 diabetes mellitus without complications; Y90.9 Presence of alcohol in blood, level not specified; W18.39XA Other fall on same level, initial encounter; Y93.89 Activity, other specified; Y92.89 Other specified places as the place of occurrence of the external cause; Y99.8 Other external cause status
CPT/HCPCS: 70450; 71045; 72125; 80053; 80305; 80320; 81003; 82140; 84484; 85008; 85025; 93005; 99285; J7030

== ENCOUNTER 2024-08-03 15:18 | Emergency (ER) | payer MEDICARE, BC ==
[~2024-08-03] VITALS: Ht 177.8 cm; Wt 103.6 kg
[~2024-08-03 15:18] MED LIST changes: +AMLO-888 PO; -AMLO10TA48 PO; +GABA-1405 PO; -GABA600T13 PO
[2024-08-03 15:19] VITALS: BP 149/82; PULSE 76; RESP 16; O2SAT 95
[2024-08-03] MEDS ORDERED: DOXY100C43 PO (16:25)
--- NOTE | 2024-08-03 16:26 | Physician Documentation ---
History of Present Illness General Chief Complaint: Arm Pain Stated Complaint: ARM INFECTION Time Seen by MD: 15:25 Primary Medical Doctor: Dr. Estrada History of Present Illness Initial Comments 89-YEAR-OLD RIGHT-HAND DOMINANT MALE BROUGHT TO THE EMERGENCY DEPARTMENT BY DAUGHTER FOR EVALUATION OF UNRESOLVED RIGHT FOREARM ABSCESS. HAS BEEN RECEIVING WARM MOIST SOAKS AT HOME YET AND BEEN UNSUCCESSFUL FOR TO SELF RESOLVE. HE IS GROSSLY NEUROLOGICALLY INTACT DISTAL CAP REFILL PRESENT. HE WAS APPROXIMATELY 3 CM 3 CM ERYTHEMIC MILDLY INDURATED AREA WITH CENTRAL FLUCTUANT ABSCESS OF 1-1/2 CM X 1-1/2 CM Medication Reconciliation Allergies: Coded Allergies: No Known Allergies (Unverified , 04/15/23) Scheduled Amlodipine Besylate (Norvasc), 1 TAB PO HS, (Reported) Apixaban (Eliquis), 1 TAB PO BID, (Reported) Doxycycline Monohydrate (Doxycycline Monohydrate), 100 MG PO BID Gabapentin (Gabapentin), 2 CAP PO HS, (Reported) Gabapentin (Gabapentin), 1 CAP PO QAM, (Reported) Hydrochlorothiazide (Hydrochlorothiazide), 1 TAB PO DAILY, (Reported) Lutein (Lutein), 40 MG PO DAILY, (Reported) Metformin HCl (Metformin HCl), 1 TAB PO BKF, (Reported) Simvastatin* (Zocor*), 1 TAB PO HS, (Reported) Sotalol Hcl (Sotalol), 0.5 TAB PO Q12H, (Reported) Tamsulosin Hcl (Flomax), 0.4 MG PO DAILY, (Reported) Past Medical History Past Medical History: Atrial Fibrillation, High Cholesterol, Hypertension, Pneumonia, Sleep Apnea, Diabetes, Chronic Back Pain Past Surgical History: orthopedic surgeries Other Past Surgical History: herniorrhaphy, right femoral artery repair Smoking: Quit greater than 1 year Alcohol Use: Occasionally Drug Use: none Lives with: Spouse Lives In: Home Occupation: retired Review of Systems All Other Systems at this time: Reviewed and Negative Constitutional: Denies: fever, chills Integumentary RIGHT FOREARM ABSCESS Physical Exam Physical Exam Vital Signs: RN Vital Signs have been reviewed: Yes, Temperature: 98.5, Source: Oral, Heart Rate: 76, Respiratory Rate: 16, BP: 149/82, Pulse Oximetry: 95, Weight: 103.600 Oxygen Flow Rate: 0 General Appearance: alert, WD/WN, ill-appearing Head: normal inspection Face: normal inspection Pupils/EOM/Fundus: PERRLA Respiratory: no respiratory distress Chest: no accessory muscle use Cardiovascular: regular rate, rhythm Extremities: other (3 X 3 CM ERYTHEMIC INDURATED AREA WITH A 1-1/2 CM CENTRAL FLUCTUANT AREA TO THE VENTRAL SURFACE OF THE MID RIGHT FOREARM) Neurologic: oriented x4 Psychiatric: normal mood/affect Skin: normal color, other (RIGHT FOREARM ABSCESS) Procedures I & D Procedure : Site: RIGHT FOREARM Anesthesia: Lidocaine Volume Anesthetic (mls): 1 Blade Size: 11 Prep/Supplies: betadine prep Incision: mass incised, pus drained, blood drained Tolerated Procedure Well?: yes, no complications Procedure Note AFTER DIRT ACHIEVING VERBAL CONSENT FROM THE PATIENT AND DAUGHTER. ANESTHETIZED THE WOUND WITH 1% LIDOCAINE. AFTER ACHIEVING ADEQUATE ANESTHESIA THE WOUND WAS PREPPED AND INCISED WITH 11. BLADE. PURULENT SEROUS SANGUINOUS DISCHARGE EXPRESSED. WOUND WAS PACKED WITH QUARTER-INCH GAUZE AND STERILE DRESSING APPLIED. WOUND CARE INSTRUCTIONS PROVIDED. TOLERATED PROCEDURE WELL. Progress Results/Orders Results/Orders Vital Signs 08/03/24 08/03/24 15:19 16:27 Temp 98.5 98.5 Pulse 76 Resp 16 B/P (MAP) 149/82 Pulse Ox 95 O2 Flow Rate 0 Medical Decision Making Differential Diagnosis RIGHT-HAND DOMINANT 89-YEAR-OLD MALE WHO HAS AN ABSCESS TO THE RIGHT FOREARM REQUIRING INCISION AND DRAINAGE. BEEN MANAGING AT HOME WITH WARM MOIST SOAKS. NO FEVERS OR KNOWN RECENT INJURY. PRIOR HISTORY OF THE SAME IN THE PAST. PLEASE SEE PROCEDURE NOTE FOR SUCCESSFUL INCISION AND DRAINAGE WITH PACKING. AFTERCARE INSTRUCTIONS AND ANTIBIOTIC COVERAGE PROVIDED. RECOMMEND 72 HOUR FOLLOW UP IN THE EMERGENCY DEPARTMENT FOR PACKING REMOVAL. PATIENT WAS STABLE FOR SAFE DISCHARGE. Departure Disposition: 01 HOME / SELF CARE / HOMELESS Impression: Primary Impression: Abscess of forearm, right Additional Impression: Encounter for incision and drainage procedure Condition: Improved Discharge Instructions: Abscess, Care After Additional Instructions: Please begin antibiotic as directed twice daily for 10 days. Please have your wound reassessed in 72 hours for signs of infection. If packing falls out please do warm moist soaks and if symptoms worsen please return to the emergency department. Thank you for visiting [facility]. Referrals: NO PRIMARY CARE PROVIDER (PCP) Prescriptions Doxycycline Monohydrate (Doxycycline Monohydrate) 100 Mg Capsule 100 MG PO BID, #20 CAP may sub doxycycline hyclate or azithromycin z-pack as prescribed Prov: JOSE CARLOS ZAMARRIPA 08/03/24 Education Educated: Patient Educated regarding: diagnosis, treatment Signature Scribe Signature: . Attestation: . JOSE CARLOS ZAMARRIPA August 03, 2024 16:25
[2024-08-03 16:27] VITALS: TEMP 98.5
== END 2024-08-03 16:28 | disposition home or self-care (01) ==
LOC: ER 15:18
DX: L02.413 Cutaneous abscess of right upper limb (principal); E11.9 Type 2 diabetes mellitus without complications; E78.00 Pure hypercholesterolemia, unspecified; G47.30 Sleep apnea, unspecified; I10 Essential (primary) hypertension; I48.91 Unspecified atrial fibrillation
CPT/HCPCS: 10060; 99283; A6402; A6407; Z7610; A6449

== ENCOUNTER 2024-09-19 07:04 | Emergency (ER) | payer MEDICARE, BC ==
[~2024-09-19] VITALS: Ht 177.8 cm; Wt 97.7 kg
[2024-09-19 07:08] VITALS: TEMP 97.8
[2024-09-19] MEDS: HYDROcodone/acetaminophen 5mg/325mg tablet PO ONE (07:56)
--- NOTE | 2024-09-19 08:09 | RADIOLOGY REPORT ---
CLINICAL INFORMATION: 89 years old, Male; ground level fall, head strike, elaquis. TECHNIQUE: Axial imaging was obtained through the brain without contrast. Coronal and sagittal reform atted images were obtained, reviewed, and stored. Images were reviewed in brain and bone windows. Al l CT scans at this medical facility are performed using dose modulation techniques as appropriate to a performed exam including the following: Automated exposure control was utilized; adjustment of the MA and/or KV according to patient size; and use of iterative reconstruction technique. CTDIvol = 67.9 8 mGy DLP = 1279.37 mGy-cm COMPARISON: CT CT HEAD on DOS: 04/15/23 FINDINGS: There is no acute intracranial hemorrhage. No mass effect or midline shift. Scattered areas of hypoattenuation are seen in the periventricular and subcortical white matter, which are nonspecif ic but most likely sequelae of small vessel ischemic disease.The ventricles and sulci are within norm al limits in size for age. Basal cisterns are patent. The calvarium is unremarkable. Near complete o pacification of the left maxillary sinus. Additional scattered areas of mild mucosal thickening in th e paranasal sinuses. Mastoid air cells are clear. IMPRESSION: 1. No CT evidence of acute intracranial abnormality. 2. Left maxillary sinusitis. 3. Additional nonacute findings as described above.
--- NOTE | 2024-09-19 08:40 | Physician Documentation ---
History of Present Illness ~ Chief Complaint: Mechanical Fall Stated Complaint: FALL Time Seen by MD: 07:09 Primary Medical Doctor: Dr. Estrada HPI 89 year old male on DOAC s/p ground level fall, struck back of head. Reports no LOC, headache, hip pain. Was ambulatory immediately afterward. Denies pain to extremities. Reports chronic back pain. Tetanus within 5 Years?: Yes Medication Reconciliation Allergies: Coded Allergies: No Known Allergies (Unverified , 04/15/23) Scheduled Amlodipine Besylate (Norvasc), 1 TAB PO HS, (Reported) Apixaban (Eliquis), 1 TAB PO BID, (Reported) Gabapentin (Gabapentin), 2 CAP PO HS, (Reported) Gabapentin (Gabapentin), 1 CAP PO QAM, (Reported) Hydrochlorothiazide (Hydrochlorothiazide), 1 TAB PO DAILY, (Reported) Lutein (Lutein), 40 MG PO DAILY, (Reported) Metformin HCl (Metformin HCl), 1 TAB PO BKF, (Reported) Simvastatin* (Zocor*), 1 TAB PO HS, (Reported) Sotalol Hcl (Sotalol), 0.5 TAB PO Q12H, (Reported) Tamsulosin Hcl (Flomax), 0.4 MG PO DAILY, (Reported) Past Medical History Past Medical History: Atrial Fibrillation, High Cholesterol, Hypertension, Pneumonia, Sleep Apnea, Diabetes, Chronic Back Pain Past Surgical History: orthopedic surgeries Other Past Surgical History: herniorrhaphy, right femoral artery repair Alcohol Use: Occasionally Drug Use: none Lives with: Spouse Lives In: Home Occupation: retired Review of Systems All Other Systems at this time: Reviewed and Negative Physical Exam Vital Signs: RN Vital Signs have been reviewed: Yes, Temperature: 97.8, Source: Oral, Heart Rate: 56, Respiratory Rate: 15, BP: 160/72, Pulse Oximetry: 94, Weight: 97.700 Physical Exam HEENT: PERRL, moist oral mucosa, EOMI; midline parieto-occipital scalp abrasion Pulmonary: No respiratory distress MSK: no deformity Skin: w/d/i, no rash Neuro: alert, nonfocal Psych: normal affect Progress Results/Orders Results/Orders Orders - NORA MANCINI MD Ct Head (09/19/24 07:47) Completed Orders - NORA MANCINI MD Ct Head (09/19/24 07:47) Hydrocodone/Apap 5/325mg Tab ([place] 5/32 (09/19/24 07:45) Medications Received in ER Medications (Trade) Dose Ordered Sig/Tiki Route PRN Reason Start Time Stop Time Status Last Admin Dose Admin ([place] 5/325mg tablet) 1 tab ONCE ONCE PO 09/19/24 07:45 09/19/24 07:46 DC 09/19/24 07:56 1 TAB Vital Signs 09/19/24 09/19/24 07:08 07:56 Temp 97.8 Pulse 56 Resp 15 15 B/P (MAP) 160/72 Pulse Ox 94 Medical Decision Making Findings 89 year old male with abrasion to scalp, on DOAC. CT head negative. Will road test, return precautions. Differential Dx:Considerations: Include: Closed head injury, Cerebral contusion, Abrasion(s), Contusion(s), Hematoma(s), Laceration(s), Encephalopathy Departure Disposition: 01 HOME / SELF CARE / HOMELESS Impression: Primary Impression: Scalp abrasion Condition: Stable Discharge Instructions: Fall Prevention in the Home, Adult, [id number] Referrals: NO PRIMARY CARE PROVIDER (PCP) Education Educated: Patient Educated regarding: diagnosis, treatment, prognosis, need for follow up Signature Scribe Signature: . Attestation: . NOAR MANCINI MD Sep 19, 2024 08:40
[2024-09-19 09:05] VITALS: BP 124/54; PULSE 63; RESP 15; O2SAT 100
[2024-09-22] MEDS ORDERED: GABA300C PO (03:46)
[2024-09-24] MEDS ORDERED: HYDR-3972 PO (12:51)
[2024-09-24] MEDS ORDERED: ONDA-103 PO (12:51)
[2024-09-24] MEDS ORDERED: DOCU100C40 PO (12:51)
== END 2024-09-19 09:05 | disposition home or self-care (01) ==
LOC: ER 07:04
DX: S00.01XA Abrasion of scalp, initial encounter (principal); M54.9 Dorsalgia, unspecified; E11.9 Type 2 diabetes mellitus without complications; E78.00 Pure hypercholesterolemia, unspecified; G47.30 Sleep apnea, unspecified; I10 Essential (primary) hypertension; I48.91 Unspecified atrial fibrillation; W19.XXXA Unspecified fall, initial encounter; Y93.89 Activity, other specified; Y92.89 Other specified places as the place of occurrence of the external cause; Y99.8 Other external cause status
CPT/HCPCS: 70450; 99284